=== PATIENT | female | born 1935 | race Caucasian/White ===

== ENCOUNTER → 2019-11-20 13:16 | Outpatient (BNVA) | payer MEDICARE, SELFPAY | PROVIDERS: Family Provider Family Medicine; PCP Family Medicine; Visit Provider Otolaryngology | DX: H61.23 Impacted cerumen, bilateral (principal); H60.501 Unspecified acute noninfective otitis externa, right ear | CPT/HCPCS: 69210; 99214 ==

== ENCOUNTER 2020-03-09 08:59 | Day surgery (SDC) | payer MEDICARE, SELFPAY ==
[2020-03-08 12:03] VITALS: BMI 18.4
[2020-03-09 09:21] VITALS: BP 164/66; PULSE 72; RESP 16; TEMP 36.7; O2SAT 98
[2020-03-09] MEDS: sodium chloride 0.9% 1,000 ML 30 ML IV (09:30)
--- NOTE | 2020-03-09 09:44 | ANES.PREANE2 ---
Pre-Anesthetic Assessment Pre-Anesthetic Assessment: Height/Weight: Height 1.64 m Weight 49.442 kg Temp Pulse Resp BP Pulse Ox 98.0 F 72 16 164/66 98 03/09/20 09:21 03/09/20 09:21 03/09/20 09:21 03/09/20 09:21 03/09/20 09:21 Preop Diagnosis: Abdominal pain nausea bloating Proposed Procedure: Operation Date: 03/09/20 10:30 Proposed Procedures p EGD with poss biopsy [id number] K21.9 Z86.010(Not Applicable) - Davy Melchor MD s Colonoscopy with poss biopsy possible polypectomy(Not Applicable) - Davy Melchor MD Familial anesthetic complications: None Was Beta Darin taken within 24 hours: N/A Last intake: Intake Last Liquid Date 03/08/20 Last Liquid Time 22:00 Last Solid Date 03/07/20 Last Solid Time 22:00 Social: Social History: No alcohol and No tobacco Exam: Pre-Anes Outpt Exam: alert, oriented x 3, clear to auscultation bilaterally and regular rate & rhythm Airway: Cervical ROM: WNL MP: 2 Dentition: Partials Pulmonary: Pulmonary: None reported CV/HEM: CV/HEM: None reported : : None reported Hepatic: Hepatic: None reported GI: GI: None reported Metabolic: Metabolic: None reported Musc/skel: Musc/skel: None reported Neuropsych: Neuropsych: None reported Anesthetic Plan: ASA status: 1 Anesthesia: MAC Risk of > 500 ml blood loss (7ml/kg in children): No Meds/Allergies Current Medications: Current Medications Generic Name Dose Route Start Last Admin Trade Name Freq PRN Reason Stop Dose Admin Sodium Chloride 1,000 mls @ 30 ml s/hr 03/09/20 09:30 03/09/20 09:30 Sodium Chloride 0.9% IV 30 mls/hr .Q24H GABBIE Administration PFSH Anesthesia PFSH: Medical History Acute otitis externa Surgical History H/O colonoscopy 12/21/2009 History of benign breast biopsy History of eye surgery both History of hip replacement left Family History Mother Parkinson disease Stroke Father Stroke Denies family history of Anesthesia complication Bleeding disorder Cancer Social History Smoking and tobacco status: former smoker Alcohol intake: current Alcohol intake frequency: holidays/special occasions only Lives independently: Yes Household members: spouse Marital status: Current occupational status: retired History of recent travel: No Data Anesthesia Cardiac Studies: No Data to Display
[2020-03-09 11:36] VITALS: BP 129/80; PULSE 64; RESP 16; TEMP 36.5; O2SAT 98
[2020-03-09 11:56] VITALS: BP 141/72; PULSE 68; RESP 16; O2SAT 97
--- NOTE | 2020-03-11 19:14 | W.PM.OPSUD ---
Surgery/Procedure H&P Update DATE OF PROCEDURE: March 11, 2020 DATE H&P PERFORMED: 02/20/20 H&P UPDATE INFORMATION: I have reviewed H&P completed within last 30 days, I have examined patient prior to procedure and No changes to prior documentation PREOP DIAGNOSIS: Abdominal pain nausea bloating PLANNED PROCEDURE: Operation Date: 03/09/20 10:30 Proposed Procedures p EGD with poss biopsy [id number] K21.9 Z86.010(Not Applicable) - Davy Melchor MD s Colonoscopy with poss biopsy possible polypectomy(Not Applicable) - Davy Melchor MD
== END 2020-03-09 12:00 | disposition home or self-care (01) ==
PROVIDERS: PCP Family Medicine; Visit Provider Surgery
PROC: 0DJ08ZZ Inspection of Upper Intestinal Tract, Via Natural or Artificial Opening Endoscopic (ICD-10-PCS; CPT 43235; principal; 2020-03-09 10:30)
PROC: 0DJD8ZZ Inspection of Lower Intestinal Tract, Via Natural or Artificial Opening Endoscopic (ICD-10-PCS; CPT 45378; 2020-03-09 10:30)
DX: R10.9 Unspecified abdominal pain (principal); R11.0 Nausea; R14.0 Abdominal distension (gaseous); R19.7 Diarrhea, unspecified; K59.00 Constipation, unspecified; K57.30 Diverticulosis of large intestine without perforation or abscess without bleeding; K44.9 Diaphragmatic hernia without obstruction or gangrene; Z87.891 Personal history of nicotine dependence
CPT/HCPCS: 12345; 43239; 45378; 88305; J2704; J7030

== ENCOUNTER 2020-03-18 13:28 | Outpatient (CLI) | payer MEDICARE, SELFPAY ==
--- NOTE | 2020-03-18 13:34 | MM_ITS ---
WS: [id number] SCREENING DIGITAL MAMMOGRAM WITH CAD HISTORY: SCREENING COMPARISON: None available. Bilateral CC and MLO views submitted. Computer aided detection analyzed. Breast composition: The breasts are extremely dense, which lowers the sensitivity of mammography. The re is an area of distortion near 12:00 of the RIGHT breast. This asymmetry may be due to prior biopsy . Patient indicates prior bilateral breast biopsies. No prior studies for comparison. There are addit ional bilateral rodlike calcifications and dense fibroglandular tissue. RIGHT breast: Spot compression views (CC and MLO). True ML. Ultrasound to follow if abnormality persi sts. MM/[place] [id number] IMPRESSION: BI-RADS: 0-Incomplete: Need additional imaging evaluation FOLLOW UP: Need Additional Imaging
== END 2020-03-18 13:29 | disposition home or self-care (01) ==
LOC: RADSHAW 13:32
PROVIDERS: PCP Family Medicine; Visit Provider Family Medicine
DX: Z12.31 Encounter for screening mammogram for malignant neoplasm of breast (principal); N64.89 Other specified disorders of breast
CPT/HCPCS: 77067

== ENCOUNTER 2020-04-09 09:09 | Outpatient (CLI) | payer MEDICARE, SELFPAY ==
--- NOTE | 2020-04-09 09:18 | US_ITS ---
WS: [id number] ADDITIONAL VIEWS RIGHT BREAST RIGHT breast ultrasound, limited HISTORY: RT BREAST MASS COMPARISON: 03/18/2020 Compression views right CC and MLO projection. True ML also submitted. Breast parenchyma is extremely dense. With the spot compression views the area of distortion in the p osterior breast nearly completely resolves. As per history patient had a biopsy in this location. The re are benign calcifications. RIGHT breast ultrasound, limited. Ultrasound is directed to the superior portion of the breast. This is in the area of the previous bio psy. Along the scar there is an area of low attenuation and soft tissue thickening without increased vascularity. US/US breast RT limited* [id number] IMPRESSION: BI-RADS: 3-Probably Benign FOLLOW-UP: 6 Month Follow-up Recommend 6 month follow-up RIGHT mammogram and ultrasound. There is soft tissu e thickening and distortion in the RIGHT breast closely associated with the sca r formation from prior surgery. There is no increased vascularity. With no prio r studies for comparison interval change is difficult to determine. No history of breast cancer.
== END 2020-04-09 09:10 | disposition home or self-care (01) ==
LOC: RADSHAW 09:15
PROVIDERS: PCP Family Medicine; Visit Provider Family Medicine
DX: N63.10 Unspecified lump in the right breast, unspecified quadrant (principal); R92.1 Mammographic calcification found on diagnostic imaging of breast
CPT/HCPCS: 76642; 77065

== ENCOUNTER → 2020-04-19 08:50 | Outpatient (BNVA) | payer MEDICARE, SELFPAY | PROVIDERS: PCP Family Medicine; Visit Provider Specialist | DX: M79.675 Pain in left toe(s) (principal); M79.674 Pain in right toe(s); R20.0 Anesthesia of skin; R20.2 Paresthesia of skin | CPT/HCPCS: 95909 ==

== ENCOUNTER 2021-02-11 13:16 | Outpatient (CLI) | payer MEDICARE, SELFPAY ==
--- NOTE | 2021-02-11 13:24 | MM_ITS ---
WS: [id number] Right breast diagnostic digital mammogram, 02/11/2021 Clinical Data: RT BREAST MASS Comparison: 04/09/2020, 03/18/2020. Findings: The right breast shows extreme density. There are benign ductal calcifications throughout. No definit e spiculated masses or clustered calcifications are seen. MM/[place] [id number] Impression: 1. Negative right breast mammogram. 2. Right breast ultrasound will be done. BIRADS: 2-Benign FOLLOW UP: See Report The CAD blast furnace checker was used.
--- NOTE | 2021-02-11 13:24 | US_ITS ---
WS: [id number] Right breast ultrasound, 02/11/2021 Clinical Data: RT BREAST MASS Comparison: Right breast ultrasound, 04/09/2020. Findings: Right breast ultrasound in the superior aspect of the breast from 11:00 to 1:00 demonstrated the pres ence of the scar. The breast parenchymal findings showed only normal breast tissue. No cysts or nereyda s were seen. US/US breast RT limited* [id number] Impression: Normal right breast ultrasound. Recommend return to annual screening mammograms BIRADS: 2-Benign FOLLOW UP: 1 Year Follow-up
== END 2021-02-11 13:17 | disposition home or self-care (01) ==
LOC: RADSHAW 13:21
PROVIDERS: PCP Family Medicine; Visit Provider Family Medicine
DX: N63.10 Unspecified lump in the right breast, unspecified quadrant (principal); R92.1 Mammographic calcification found on diagnostic imaging of breast
CPT/HCPCS: 76642; 77065

== ENCOUNTER 2021-03-02 15:57 | Outpatient (CLI) | payer MEDICARE, SELFPAY ==
--- NOTE | 2021-03-02 16:01 | XR_ITS ---
WS: [id number] SCREENING DEXA SCAN [facility]epar CLINICAL INFORMATION: MENOPAUSAL STATE COMPARISON: None. FINDINGS: The L1-L4 bone mineral density measures 1.036 g/cm2. This corresponds to a T score score of -1.2 and Z score of 1.1. Right femoral neck bone mineral density measures 0.698. This corresponds to a T score -2.5 and Z scor e of 0.1. XR/XR DEXA axial skeleton* [id number] IMPRESSION: Osteopenia lumbar spine. Osteoporosis in the right femoral neck at the lower en d of the range. Patient's FRAX calculated 10 year probability for major osteoporotic fracture i s 34.6 % and osteoporotic hip fracture is 25.6%.
== END 2021-03-02 15:58 | disposition home or self-care (01) ==
PROVIDERS: PCP Family Medicine; Visit Provider Family Medicine
DX: Z78.0 Asymptomatic menopausal state (principal); M85.88 Other specified disorders of bone density and structure, other site; M81.0 Age-related osteoporosis without current pathological fracture
CPT/HCPCS: 77080

== ENCOUNTER → 2021-12-28 09:52 | Outpatient (BNVA) | payer MEDICARE, SELFPAY | PROVIDERS: PCP Family Medicine; Visit Provider Otolaryngology | DX: H90.0 Conductive hearing loss, bilateral (principal); H61.23 Impacted cerumen, bilateral; Z87.891 Personal history of nicotine dependence | CPT/HCPCS: 69210; 99203 ==

== ENCOUNTER 2022-08-22 09:29 | Outpatient (CLI) | payer SELFPAY ==
[2022-08-22 10:04] LABS: HF Add Manual Diff No
[2022-08-22 10:09] LABS: Basophils # 0.1 10^3/uL (0.0-0.1); Eosinophils # 0.1 10^3/uL (0.0-0.8); Eosinophils % 1.8 %; Hematocrit 40.6 % (37.0-47.0); Hemoglobin 13.1 g/dL (11.5-15.3); Lymphocytes # 2.4 10^3/uL (0.8-4.8); Lymphocytes % 39.9 %; Mean Corpuscular HGB Conc 32.3 g/dL (30.0-36.0); Mean Platelet Volume 9.9 fL (7.4-10.4); Monocytes # 0.8 10^3/uL (0.2-0.9); Monocytes % 12.5 %; Neutrophils # 2.67 10^3/uL (1.8-7.7); Neutrophils % 44.5 %; Nucleated Red Blood Cells % 0 %; Platelet Count 318 10^3/cmm (130-400); Red Blood Count 4.51 10^6/uL (4.1-5.3); Red Cell Distribution Width 13.2 % (12.1-15.1)
[2022-08-22 10:23] LABS: Estmated Average Glucose 123; Hemoglobin A1C 5.9 % (4.0-6.0)
[2022-08-22 10:40] LABS: Alanine Aminotransferase 10 U/L (0-33); Albumin Level 4.4 g/dL (3.5-5.2); Alkaline Phosphatase 37 U/L (35-105); Anion Gap 12.8 (5-19); Aspartate Amino Transferase 14 U/L (0-32); Blood Urea Nitrogen 10 mg/dL (8-23); Carbon Dioxide 29 mmol/L (22-29); Chloride 105 mmol/L (98-107); Chol HDL Ratio 3.16 mg/dL (0.0-4.40); Cholesterol 256 mg/dL (0-200); Globulin 3.1 g/dL (1.3-4.6); Glucose 98 mg/dL (65-115); HDL Cholesterol 81 mg/dL (60-100); LDL Cholesterol Calculated 162 mg/dL (50-129); Osmolality Calculated 293 mOsm/kg (285-295); Potassium 4.8 mmol/L (3.5-5.1); Sodium 142 mmol/L (136-145); Total Bilirubin 0.4 mg/dL (0.15-1.2); Total Protein 7.5 g/dL (6.6-8.7); Triglycerides 67 mg/dL (0-150)
== END 2022-08-22 09:30 | disposition home or self-care (01) ==
LOC: LAB 09:31
PROVIDERS: PCP Family Medicine; Visit Provider Dermatology
DX: Z01.89 Encounter for other specified special examinations (principal)

== ENCOUNTER → 2022-12-08 08:56 | Outpatient (BNVA) | payer MEDICARE, SELFPAY | PROVIDERS: PCP Family Medicine; Visit Provider Family Medicine | DX: G56.00 Carpal tunnel syndrome, unspecified upper limb (principal); M19.90 Unspecified osteoarthritis, unspecified site; G47.00 Insomnia, unspecified | CPT/HCPCS: 85651; 86140; 86160; 86162; 86235; 86255; 86376; 86431 ==

== ENCOUNTER 2023-05-22 11:18 | Outpatient (CLI) | payer SELFPAY ==
[2023-05-22 12:14] LABS: HF Add Manual Diff No
[2023-05-22 12:46] LABS: Basophils # 0.1 10^3/uL (0.0-0.1); Eosinophils # 0.1 10^3/uL (0.0-0.8); Eosinophils % 1.3 %; Hematocrit 37.7 % (36-47); Lymphocytes # 2.2 10^3/uL (0.8-4.8); Lymphocytes % 27.7 %; Mean Corpuscular HGB Conc 32.1 g/dL (30-55); Mean Corpuscular Hemoglobin 27.8 pg (27-33); Mean Corpuscular Volume 86.5 fl (85-98); Monocytes % 12.6 %; Neutrophils # 4.56 10^3/uL (1.8-7.7); Nucleated Red Blood Cells % 0 %; Platelet Count 360 10^3/cmm (157-399); Red Blood Count 4.36 10^6/uL (3.85-5.65); White Blood Count 7.99 10^3/uL (3.29-11.43)
[2023-05-22 12:49] LABS: Estmated Average Glucose 114; Hemoglobin A1C 5.6 % (4.0-6.0)
[2023-05-22 12:54] LABS: Alanine Aminotransferase 10 U/L (0-33); Albumin Level 4.3 g/dL (3.5-5.2); Alkaline Phosphatase 47 U/L (35-105); Anion Gap 14.5 (5-19); Aspartate Amino Transferase 13 U/L (0-32); Blood Urea Nitrogen 15 mg/dL (8-23); Calcium 9.2 mg/dL (8.5-10.5); Carbon Dioxide 27 mmol/L (22-29); Chloride 100 mmol/L (98-107); Chol HDL Ratio 2.99 mg/dL (0.0-4.40); Cholesterol 203 mg/dL (0-200); Globulin 2.9 g/dL (1.3-4.6); Glucose 88 mg/dL (65-115); HDL Cholesterol 68 mg/dL (60-100); LDL Cholesterol Calculated 120 mg/dL (50-129); LDL HDL Ratio 1.76 RATIO (0.00-3.22); Osmolality Calculated 284 mOsm/kg (285-295); Potassium 4.5 mmol/L (3.5-5.1); Sodium 137 mmol/L (136-145); Total Bilirubin 0.4 mg/dL (0.15-1.2); Total Protein 7.2 g/dL (6.6-8.7); Triglycerides 73 mg/dL (0-150)
== END 2023-05-22 11:19 | disposition home or self-care (01) ==
PROVIDERS: PCP Family Medicine; Visit Provider Dermatology
DX: Z01.89 Encounter for other specified special examinations (principal)
CPT/HCPCS: 36415

== ENCOUNTER 2023-06-15 09:59 | Emergency (ER) | payer MEDICARE, SELFPAY ==
[2023-06-15 10:12] VITALS: BP 204/74; PULSE 85; RESP 17; TEMP 36.7; O2SAT 99; BMI 20.5
--- NOTE | 2023-06-15 10:19 | ECG_ITS ---
[facility] Test Date: 2023-06-15 Pat Name: Brea Ortiz Department: Room: Gender: Female Marketing Operations Consultant: : 1935 Requested By: Harsha Gregory Order Number: [id number] Ana MD: Hanna Naik M.D. Measurements Intervals [place] Rate: 76 P: 72 NC: 122 QRS: 44 QRSD: 104 T: 52 QT: 384 QTc: 433 Interpretive Statements SINUS RHYTHM No previous ECG available for comparison Electronically Signed On 06-15-2023 13:31:33 CDT by Hanna Naik M.D. [email or web address]
--- NOTE | 2023-06-15 10:19 | CT_ITS ---
WS: [id number] CT HEAD TECHNIQUE: Noncontrast CT of the head obtained from the skullbase to the vertex. CLINICAL INFORMATION: Acute CVA COMPARISON: None. DLP: 1041.[address] scans at [facility] use at least one of these dose optimization techniques: automated e xposure control; mA and/or kV adjustment per patient size (includes targeted exams where dose is matc hed to clinical indication); or iterative reconstruction. FINDINGS: Wedge-shaped area of decreased attenuation in the LEFT parietal lobe at the frontoparietal junction m ost compatible with subacute ischemia measuring approximately 4.9 x 1.8 cm. Minimal localized surroun ding edema. No significant mass effect or midline shift. No hydrocephalus. Mild small vessel changes. Mild parenchymal volume loss. Intracranial vascular calcifications. Parana lito sinuses and mastoid air cells are well aerated. IMPRESSION: 1. No evidence of intracranial hemorrhage 2. Wedge-shaped area of low-attenuation in the LEFT parietal lobe at the frontoparietal junction mos t compatible with subacute ischemia. This can be followed up with MRI. 3. No other acute findings. Notified Harsha Del Castillo DO at 06/15/2023 11:17 AM.
--- NOTE | 2023-06-15 10:27 | W.ED.WEAKNES ---
HPI - Weakness General: Chief complaint: Weakness Stated complaint: stroke symptoms last night Time Seen by Provider: 06/15/23 10:12 Source: patient Mode of arrival: ambulatory History of Present Illness: 88-year-old female presents to the emergency room with her . Feeling for the last week she has had dizziness generalized weakness she has not felt right at times she has been stuttering. She has some weakness on her left side as well. She has not had any visual difficulties. Time she is seen she is awake and alert. MD Complaint: generalized weakness Onset (ago): minute(s) Duration: constant Location: RLE Migration: none Severity: mild Relieving factors: none Exacerbating factors: none Associated symptoms: Denies chest pain, chills, confusion, melena, decreased appetite, diaphoresis, dysuria, easy bruising, fever(s), headache(s), myalgias, nausea, rash, short of breath, syncope or vomiting Review of Systems Const: Denies: fever(s), chills or diaphoresis ENMT: Denies: throat pain, ear or mastoid pain, nasal discharge or nasal congestion Card: Denies: chest pain or syncope Resp: Denies: dyspnea, productive cough or non-productive cough GI: Denies: nausea, vomiting or melena : Denies: dysuria Skin/Breast: Denies: rash or pruritus Neuro: Denies: headache(s) or confusion [place]/Lymph: Denies: easy bruising PFS ED PFSH: Medical History Acute otitis externa Surgical History H/O colonoscopy (03/09/20) diverticulosis H/O esophagogastroduodenoscopy (03/09/20) normal History of benign breast biopsy History of eye surgery both History of hip replacement left History of parathyroid surgery Family History Mother Parkinson disease Stroke Father Stroke Denies family history of Anesthesia complication Bleeding disorder Cancer Social History Smoking and tobacco status: former smoker (last cig in 2004) Alcohol intake: current Alcohol intake frequency: holidays/special occasions only Substance/Drug Use: never Lives independently: Yes Household members: spouse Marital status: Current occupational status: retired Physical Exam Const: GENERAL APPEARANCE: cooperative and comfortable ORIENTATION/CONSCIOUSNESS: Yes awake, Yes oriented to person, Yes oriented to place and Yes oriented to time HENMT: COMMON NORMALS: normocephalic, atraumatic and hearing grossly normal bilaterally HEAD & SCALP: normocephalic and atraumatic Resp: COMMON NORMALS: normal respiratory effort, No retractions, No use of accessory muscles and clear to auscultation bilaterally AUSCULTATION: clear to auscultation bilaterally Cardio: COMMON NORMALS: regular rate, regular rhythm and No murmurs present (Cardio) RATE: regular rate RHYTHM: regular rhythm GI: COMMON NORMALS: Soft to palpation and No hepatosplenomegaly present AUSCULTATION: Yes normoactive bowel sounds PALPATION: Yes Soft to palpation, No Tenderness to palpation present (GI), No Guarding due to palpation present (GI) and Yes No hepatosplenomegaly present Extremity: COMMON NORMALS: normal to inspection, capillary refill normal, no clubbing, cyanosis or edema, no calf tenderness and no pedal edema Neuro: SENSORIUM/ORIENTATION: Yes oriented to person, Yes oriented to place and Yes oriented to time Skin: COMMON NORMALS: no rashes or lesions noted GENERAL SKIN EXAM: no rashes or lesions noted Course Vital Signs: Vital signs: Vital Signs Temperature 98.0 F 06/15/23 10:12 Pulse Rate 69 06/15/23 12:20 Respiratory Rate 17 06/15/23 10:12 Blood Pressure 188/79 06/15/23 12:20 Pulse Oximetry 100 06/15/23 12:20 Oxygen Delivery Me thod Room Air 06/15/23 12:20 MDM - Weakness Medical Decision Making Symptoms earlier today while in the left side that resolved now. she has signs of subacute stroke on the left side. I think he rarely 2 different issues her symptoms been going on for some time now. All of her acute symptoms have resolved she is able to ambulate without difficulty and her stroke score she has no significant findings. She is beyond any potential timeframe for any kind of intervention at this point. We will discharge her home start her on atorvastatin aspirin and Plavix. Set up for outpatient testing including a event monitor echocardiogram carotid duplex and MRI of the head follow-up with neurology return if is further problems. Nurse ambulated patient after work-up is completed and she had no difficulties with ambulation was not unsteady. Medical Records I reviewed the patient's medical records. Lab Data I reviewed the patient's lab results. 06/15/23 10:50 06/15/23 10:50 Laboratory Results WBC 7.23 10^3/uL (3.29-11.43) 06/15/23 10:50 RBC 4.61 10^6/uL (3.85-5.65) 06/15/23 10:50 Hgb 12.70 g/dL (11.27-16.99) 06/15/23 10:50 Hct 38.7 % (36-47) 06/15/23 10:50 MCV 83.9 fl (85-98) L 06/15/23 10:50 MCH 27.5 pg (27-33) 06/15/23 10:50 MCHC 32.8 g/dL (30-55) 06/15/23 10:50 RDW 14.6 % (12.1-15.1) 06/15/23 10:50 Plt Count 324 10^3/cmm (157-399) 06/15/23 10:50 MPV 9.9 fL (7.4-10.4) 06/15/23 10:50 Neut % (Auto) 60.0 % 06/15/23 10:50 Lymph % (Auto) 27.5 % 06/15/23 10:50 [place] % (Auto) 10.4 % 06/15/23 10:50 Eos % (Auto) 1.1 % 06/15/23 10:50 Baso % (Auto) 0.7 % 06/15/23 10:50 Neut # (Auto) 4.34 10^3/uL (1.8-7.7) 06/15/23 10:50 Lymph # (Auto) 2.0 10^3/uL (0.8-4.8) 06/15/23 10:50 [place] # (Auto) 0.8 10^3/uL (0.2-0.9) 06/15/23 10:50 Eos # (Auto) 0.1 10^3/uL (0.0-0.8) 06/15/23 10:50 Baso # (Auto) 0.1 10^3/uL (0.0-0.1) 06/15/23 10:50 Nucleated RBC % (auto) 0 % 06/15/23 10:50 Nucleated RBCs # 0.0 /100WBC 06/15/23 10:50 Sodium 135 mmol/L (136-145) L 06/15/23 10:50 Potassium 3.9 mmol/L (3.5-5.1) 06/15/23 10:50 Chloride 98 mmol/L (98-107) 06/15/23 10:50 Carbon Dioxide 25 mmol/L (22-29) 06/15/23 10:50 Anion Gap 15.9 (5-19) 06/15/23 10:50 BUN 14 mg/dL (8-23) 06/15/23 10:50 Creatinine 0.7 mg/dL (0.5-0.9) 06/15/23 10:50 GFR Calculation Not Reportable 06/15/23 10:50 Glucose 93 mg/dL (65-115) 06/15/23 10:50 Calculated Osmolality 280 mOsm/kg (285-295) L 06/15/23 10:50 Calcium 9.2 mg/dL (8.5-10.5) 06/15/23 10:50 Total Bilirubin 0.4 mg/dL (0.15-1.2) 06/15/23 10:50 AST 13 U/L (0-32) 06/15/23 10:50 ALT 9 U/L (0-33) 06/15/23 10:50 Alkaline Phosphatase 43 U/L (35-105) 06/15/23 10:50 Total Protein 7.3 g/dL (6.6-8.7) 06/15/23 10:50 Albumin 4.3 g/dL (3.5-5.2) 06/15/23 10:50 Globulin 3.0 g/dL (1.3-4.6) 06/15/23 10:50 Urine Color Yellow (Yellow) 06/15/23 11:28 Urine Appearance Clear (CLEAR) 06/15/23 11:28 Urine pH 8 (5-7) H 06/15/23 11:28 Ur Specific [place] 1.010 (1.005-1.030) 06/15/23 11:28 Urine Protein Neg (Negative) 06/15/23 11:28 Urine Glucose (UA) Norm (Normal) 06/15/23 11:28 Urine Ketones 1+ (Negative) H 06/15/23 11:28 Urine Blood Neg (Negative) 06/15/23 11:28 Urine Nitrate Negative (Negative) 06/15/23 11:28 Urine Bilirubin Neg (Negative) 06/15/23 11:28 Prot Sulfosalicylic Acd Negative (Negative) 06/15/23 11:28 Urine Urobilinogen Norm mg/dL (Negative) 06/15/23 11:28 Ur Leukocyte Esterase Negative (Negative) 06/15/23 11:28 All radiology interpretation(s) finalized by discharge Discharge Plan Discharge Patient Disposition: Home Clinical Impression: CVA (cerebrovascular accident) Condition: Stable Prescriptions: New atorvastatin 40 mg tablet 40 mg PO DAILY Qty: 30 0RF aspirin 81 mg tablet,delayed release (DR/EC) 81 mg PO DAILY Qty: 30 0RF clopidogrel 75 mg tablet 75 mg PO DAILY Qty: 30 0RF No Action biotin 1 mg capsule 1 mg PO DAILY Vitamin D3 50 mcg (2,000 unit) Tablet 50 mcg PO DAILY vitamin K2 40 mcg Tablet 40 mcg PO DAILY Discharge Orders: Discharge ED (Routine); Ordered 06/15/23 Ordered By: Harsha Del Castillo Referrals: Lance Camacho MD [Primary Care Provider] - Discharge Diet: Usual diet Discharge Activity: Increase activity as tolerated Patient Instructions: Opioid Safety, Pain Management Activity Restrictions/Additional Instructions: Case management will set up outpatient work-up to include a 48-hour Holter monitor, echocardiogram, carotid duplex and MRI of the head and follow-up with the neurology department. Start the atorvastatin aspirin and clopidogrel today. Coding Level of Care Code ED Assistant Chief Of Police for Alfonso Mcallister NIH stroke score NIHSS Level Of Consciousness - 1a: 0 Level Of Consciousness Questions - 1b: Both Correct Level Of Consciousness Commands - 1c: Both Correct Best Gaze - 2: Normal Visual [place]ost - 3: No Visual Loss Facial Palsy - 4: Normal Motor Arm Right - 5: No Drift Motor Arm Left - 5: No Drift Motor Leg Right - 6: No Drift Motor Leg Left - 6: No Drift Limb Ataxia - 7: Present In One Limb (Left leg) Sensory - 8: Normal Best Language - 9: No Aphasia Dysarthia - 10: Normal Extinction And Inattention - 11: 0 Score Total Score: 1
[2023-06-15 10:50] VITALS: BP 189/79; PULSE 73; O2SAT 99
[2023-06-15 11:07] LABS: Basophils # 0.1 10^3/uL (0.0-0.1); Basophils % 0.7 %; Eosinophils # 0.1 10^3/uL (0.0-0.8); Eosinophils % 1.1 %; Hematocrit 38.7 % (36-47); Lymphocytes % 27.5 %; Mean Corpuscular HGB Conc 32.8 g/dL (30-55); Mean Corpuscular Hemoglobin 27.5 pg (27-33); Mean Corpuscular Volume 83.9 fl (85-98); Mean Platelet Volume 9.9 fL (7.4-10.4); Monocytes # 0.8 10^3/uL (0.2-0.9); Monocytes % 10.4 %; Neutrophils # 4.34 10^3/uL (1.8-7.7); Nucleated Red Blood Cells % 0 %; Platelet Count 324 10^3/cmm (157-399); Red Blood Count 4.61 10^6/uL (3.85-5.65); Red Cell Distribution Width 14.6 % (12.1-15.1); White Blood Count 7.23 10^3/uL (3.29-11.43)
[2023-06-15 11:24] LABS: Alanine Aminotransferase 9 U/L (0-33); Albumin Level 4.3 g/dL (3.5-5.2); Alkaline Phosphatase 43 U/L (35-105); Anion Gap 15.9 (5-19); Aspartate Amino Transferase 13 U/L (0-32); Blood Urea Nitrogen 14 mg/dL (8-23); Calcium 9.2 mg/dL (8.5-10.5); Carbon Dioxide 25 mmol/L (22-29); Chloride 98 mmol/L (98-107); Glucose 93 mg/dL (65-115); Osmolality Calculated 280 mOsm/kg (285-295); Potassium 3.9 mmol/L (3.5-5.1); Sodium 135 mmol/L (136-145); Total Bilirubin 0.4 mg/dL (0.15-1.2); Total Protein 7.3 g/dL (6.6-8.7)
[2023-06-15] MEDS: amlodipine 10 mg Tablet PO (11:45)
[2023-06-15] MEDS: labetalol 5 mg/mL SDV 20mL 10 MG IVP (11:45)
[2023-06-15 11:52] LABS: Add Urine Microscopic? NO; Charge for UA Resulting for Rev
[2023-06-15 11:59] LABS: Urine Appearance Clear (CLEAR); Urine Color Yellow (Yellow); pH Urine 8 (5-7)
[2023-06-15 12:00] LABS: Bilirubin Urine Neg (Negative); Blood Urine Neg (Negative); Glucose Urine UA Norm (Normal); Ketones Urine 1+ (Negative); Leukocyte Esterase Urine Negative (Negative); Nitrate Urine Negative (Negative); Protein Urine Neg (Negative); Sulfosalicylic Acid Urine Negative (Negative); Urobilinogen Urine Norm (Negative)
[2023-06-15 12:20] VITALS: BP 188/79; PULSE 69; O2SAT 100
--- NOTE | 2023-06-15 15:33 | PC.SOCIAL ---
Neuro F/u Referral faxed to neurology at this time. Orders for o/p testing sent to centralized scheduling at this time.
== END 2023-06-15 13:28 | disposition home or self-care (01) ==
PROVIDERS: Emergency Provider Family Medicine; PCP Family Medicine
DX: I63.9 Cerebral infarction, unspecified (principal); Z87.891 Personal history of nicotine dependence
CPT/HCPCS: 70450; 80053; 81003; 85025; 93005; 96374; 99285; J3490

== ENCOUNTER 2023-06-22 13:56 | Outpatient (CLI) | payer MEDICARE, SELFPAY ==
--- NOTE | 2023-06-22 14:04 | USCV_ITS ---
Brea Ortiz Age: 88 Gender: F : 1935 Exam Date: 06/22/2023 14:26 Ordering Phys: Harsha Del Castillo DO Technologist: Kodi Villanueva [place] [facility] [place]: CVA Risk Factors: Previous Vascular Surgery: Right Brachial BP: / Left Brachial BP: / Right Left Velocity (cm/s) Spectral Plaque Velocity (cm/s) Spectral Plaque Syst/Diast Broadening Syst/Diast Broadening 68.20/ 13.80 Prox CCA 55.40 / 12.60 66.20/ 12.10 Mid CCA 66.00 / 13.20 67.50/ 20.50 Distal CCA 65.30 / 13.20 55.90/ 20.40 Prox ICA 66.00 / 25.60 105.10/28.50 Mid ICA 52.80 / 18.60 117.90/29.50 Distal ICA 88.60 / 31.10 65.70 ECA 78.50 1.59 ICA/CCA 0.80 Antegrade Vertebral Antegrade 53.90/ 11.80 cm/s 59.00/ 16.30 cm/s Tri Subclavian Bi 83.10 80.30 FINDINGS Comparison: none available. No significant elevation of systolic or diastolic velocities. Waveforms are normal. Mild scattered plaque. Antegrade vertebral arteries. CONCLUSIONS Bilateral ICA stenosis less than 50%. Dr. Yaquelin Mercado DO (Electronically Signed) Final Date: 22 June 2023 16:20 S
--- NOTE | 2023-06-22 14:04 | USCV_ITS ---
Brea Ortiz Age: 88 Gender: F : 1935 Exam Date: 06/22/2023 14:50 Ordering Phys: Harsha Del Castillo DO Technologist: Xiang Hampton Exam Location: [facility] [place] Indication: sob BP: 142 / 72 HR: 77 Rhythm: Sinus Technical Quality: Adequate MEASUREMENTS (Male / Female) Normal Values 2D ECHO LV Chamber Size 4.2 cm RV Chamber Size 2.7 cm LVOT Diameter 2.1 cm LV Ejection Fraction MOD 2C 49.5 % LV Ejection Fraction 2C AL 50.5 % LA Diameter 3.6 cm LA Width 3.9 cm LA Height 4.3 cm RA Width 4.1 cm RA Height 4.1 cm Aorta at Sinotubular Diameter 2.5 cm IVC Diameter 1.6 cm M-MODE Aortic Annulus Diameter 2.9 cm LA Ao Ratio MM 1.4 MV E Point Septal Separation 0.8 cm DOPPLER AV Peak Velocity 197.0 cm/s LVOT Peak Velocity 94.0 cm/s AV Area Cont Eq vti 1.6 cm squared AV Area Cont Eq pk 1.7 cm squared MV Area PHT 5.9 cm squared Mitral E to A Ratio 0.8 MV E' Velocity 39.0 cm/s Mitral E to MV E' Ratio 7.5 Mitral E to LV E' Lateral Ratio 8.7 Mitral E to LV E' Septal Ratio 6.6 TR Peak Velocity 164.0 cm/s TR Peak Gradient 10.8 mmHg TV Peak E Velocity 76.0 cm/s Right Atrial Pressure 3.0 mmHg Pulmonary Artery Systolic Pressu 13.8 mmHg PV Peak Velocity 110.0 cm/s FINDINGS Left Ventricle Normal left ventricular size and systolic function, EF 58 %. No regional wall motion abnormalities. Grade I/IV diastolic dysfunction (abnormal relaxation filling pattern), normal to mildly elevated filling pressures. Right Ventricle The right ventricle is normal in size and function. Right Atrium The right atrium is normal in size. Left Atrium Mildly increased left atrial size. Mitral Valve Thickened mitral valve. Trace mitral valve regurgitation. Aortic Valve Thickened aortic valve. Mild aortic valve regurgitation. Tricuspid Valve Trace to mild tricuspid valve regurgitation. Pulmonic Valve Pulmonic valve not well visualized. Pericardium Normal pericardium without effusion. Aorta Normal ascending aorta dimension. IVC Normal inferior vena cava. CONCLUSIONS Normal left ventricular size and systolic function, EF 58 %. No regional wall motion abnormalities. Grade I/IV diastolic dysfunction (abnormal relaxation filling pattern), normal to mildly elevated filling pressures. Mildly increased left atrial size. Thickened mitral valve. Trace mitral valve regurgitation. Thickened aortic valve. Mild aortic valve regurgitation. Trace to mild tricuspid valve regurgitation. Estimated pulmonary artery peak systolic pressure was 14 mmHg. There is no pericardial effusion. There are no intracardiac masses. No similar previous studies are available for comparison Dr Darling Lemos MD [facility] (Electronically Signed) Final Date: 22 June 2023 20:02 S
== END 2023-06-22 13:57 | disposition home or self-care (01) ==
LOC: RAD 13:58
PROVIDERS: PCP Family Medicine; Visit Provider Family Medicine
DX: I63.9 Cerebral infarction, unspecified (principal); I65.23 Occlusion and stenosis of bilateral carotid arteries; R06.02 Shortness of breath; I08.0 Rheumatic disorders of both mitral and aortic valves
CPT/HCPCS: 93306; 93880

== ENCOUNTER → 2023-06-26 11:25 | Outpatient (BNVA) | payer MEDICARE, SELFPAY | PROVIDERS: PCP Family Medicine; Visit Provider Internal Medicine Rheumatology | DX: Z79.899 Other long term (current) drug therapy (principal); M19.041 Primary osteoarthritis, right hand; M45.6 Ankylosing spondylitis lumbar region; Z11.59 Encounter for screening for other viral diseases; Z11.1 Encounter for screening for respiratory tuberculosis | CPT/HCPCS: 36415; 72040; 73070; 73130; 73630; 82306; 83520; 85651; 86140; 86200; 86480; 86704; 86803; 86812; 87340; 99204 ==

== ENCOUNTER → 2023-07-11 14:58 | Outpatient (BNVA) | payer MEDICARE, SELFPAY | PROVIDERS: PCP Family Medicine; Visit Provider Specialist | DX: I63.512 Cerebral infarction due to unspecified occlusion or stenosis of left middle cerebral artery (principal); G47.10 Hypersomnia, unspecified | CPT/HCPCS: 99205 ==

== ENCOUNTER 2023-07-12 13:44 | Outpatient (CLI) | payer MEDICARE, SELFPAY ==
--- NOTE | 2023-07-12 13:48 | MR_ITS ---
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 COMPARISON: CT head 06/15/2023 TECHNIQUE: Diffusion imaging, multiplanar T1, T2 and FLAIR imaging obtained. Subacute ischemic infarct in the posterior LEFT frontoparietal lobe. Diffusion imaging is returning t o normal. ADC is of increased signal. Mild cortical laminar necrosis at the site of the infarct. This corresponds to the subacute infarct described on the CT of 06/15/2023. No acute diffusion abnormaliti es otherwise. There is hemosiderin and hemorrhagic component associated with the infarct. Along the p osterior medial LEFT frontal lobe is an area of hemosiderin measuring 1.5 x 1.9 cm. There is addition al hemorrhagic component within the evolving adjacent subacute infarct. Small lacunar infarct LEFT basal ganglia. Mild volume loss and atrophy of the brain. Mild small vesse l ischemic disease. Ventricles and extra-axial spaces are normal. No inferior displacement of the cerebellar tonsils. Dural venous sinuses and di[place]ede of [place] demonstrate no abnormality on this unenhanced studies. Paranasal sinuses: Clear. Mastoid air cells: Normal. Calvarium and scalp: Intact. IMPRESSION: 1. Subacute, evolving LEFT frontoparietal lobe infarct with hemorrhagic component. Hemorrhagic compo nent was not evident on the recent CT. There is a focal area of dense hemosiderin in the parafalcine location of the posterior LEFT frontal lobe measuring 1.5 x 1.9 cm. Additional small areas of hemorrh age within the evolving infarct. Consider evaluation by postcontrast imaging of the brain to evaluate for an underlying mass or vascular malformation. 2. Mild atrophy and mild small vessel ischemic disease otherwise. Prior LEFT basal ganglia lacunar i nfarct.
== END 2023-07-12 13:45 | disposition home or self-care (01) ==
LOC: RAD 13:44
PROVIDERS: PCP Family Medicine; Visit Provider Family Medicine
DX: I61.1 Nontraumatic intracerebral hemorrhage in hemisphere, cortical (principal); R41.3 Other amnesia
CPT/HCPCS: 70551

== ENCOUNTER → 2023-08-22 12:47 | Outpatient (BNVA) | payer MEDICARE, SELFPAY | PROVIDERS: PCP Family Medicine; Visit Provider Internal Medicine Rheumatology | DX: Z79.899 Other long term (current) drug therapy (principal); M77.11 Lateral epicondylitis, right elbow; M77.12 Lateral epicondylitis, left elbow; M06.041 Rheumatoid arthritis without rheumatoid factor, right hand; M06.042 Rheumatoid arthritis without rheumatoid factor, left hand | CPT/HCPCS: 36415; 80076; 82310; 82565; 84132; 85025; 86140; 99214 ==

== ENCOUNTER → 2023-08-30 10:28 | Outpatient (BNVA) | payer MEDICARE, SELFPAY | PROVIDERS: PCP Family Medicine; Visit Provider Specialist | DX: G31.84 Mild cognitive impairment of uncertain or unknown etiology (principal); G47.10 Hypersomnia, unspecified | CPT/HCPCS: 96116; 99215 ==

== ENCOUNTER 2023-09-19 18:25 | Inpatient (IN) | payer MEDICARE, SELFPAY ==
[2023-09-19] VITALS (10 sets, daily range): BP systolic 95–179; BP diastolic 48–85; PULSE 64–90; RESP 16–17; TEMP 36.8–36.9; O2SAT 95–100; BMI 19.0
--- NOTE | 2023-09-19 19:27 | CTR_ITS ---
PROCEDURE INFORMATION: Exam: CT Head Without And With Contrast Exam date and time: 09/19/2023 7:46 PM Age: 88 years old Clinical indication: Other: Seizure TECHNIQUE: Imaging protocol: Computed tomography of the head without and with contrast. Radiation optimization: All CT scans at this facility use at least one of these dose optimization techniques: automated exposure control; mA and/or kV adjustment per patient size (includes targeted exams where dose is matched to clinical indication); or iterative reconstruction. Contrast material: OMNI 350; Contrast volume: 100 ml; Contrast route: INTRAVENOUS (IV); COMPARISON: MR head wo con* [id number] 07/12/2023 2:21 PM RADIATION DOSE METRICS: Total DLP (mGy-cm): 2583 FINDINGS: Brain: Encephalomalacia in the left parietal lobe redemonstrated. No acute intracranial abnormality. Cerebral ventricles: No ventriculomegaly. Paranasal sinuses: Visualized sinuses are unremarkable. No fluid levels. Mastoid air cells: Visualized mastoid air cells are well aerated. Bones/joints: Unremarkable. No acute fracture. Soft tissues: Unremarkable. CT/CT head wo/w con [id number] IMPRESSION: 1. No acute intracranial abnormality. 2. Encephalomalacia in the left parietal lobe redemonstrated.
--- NOTE | 2023-09-19 19:31 | ECG_ITS ---
[facility] Test Date: 2023-09-19 Pat Name: Brea Ortiz Department: Room: Gender: Female Director Financial Systems: : 1935 Requested By: Adrian Choudhury Order Number: [id number] Ana MD: Neeraj Sanchez M.D. Measurements Intervals [place] Rate: 77 P: 65 WY: 163 QRS: 36 QRSD: 90 T: 59 QT: 400 QTc: 455 Interpretive Statements SINUS RHYTHM SEPTAL MYOCARDIAL INFARCTION , OF INDETERMINATE AGE [40+ ms Q WAVE IN V1/V2] Compared to ECG 06/15/2023 11:09:48 Myocardial infarct finding now present Electronically Signed On 09-19-2023 21:10:47 ALGEBRA TEACHER by Neeraj Sanchez M.D. [id number]
--- NOTE | 2023-09-19 19:33 | ED_ITS ---
HPI - Seizure 2 General: Chief Complaint: Seizure Stated Complaint: Seizures Time Seen by Provider: 09/19/23 18:27 History of Present Illness: HPI Narrative: Patient here tonight with her who is the primary historian. The patient had what the believes is a seizure at around 6:00 tonight. They had finished dinner and he was watching TV. He looked back and she was staring off into the distance and seem to have some tonic-clonic movements of her upper extremities. After it was over (about 1 minute) she seems exhausted, fatigued, had trouble speaking, lethargic. She was brought into the emergency department. During my initial assessment, she started staring again and had some nonpurposeful low amplitude tonic-clonic movements of her upper extremities and then vomited. This lasted about 2 minutes. She seems postictal at this point. She was able to look at me and talk to me but cannot follow my commands very well. I asked her to raise her right arm up in the air and she did so. I asked her to give me a thumbs up with her left thumb and she simply just held up her hand and looked at it as if she was confused. There is a significant recent past medical history which is documented below. I have read through this and also conferred with the . Patient will need to go to CT scan for a CT head with and without contrast. Recent history from Dr Mejía: Stroke/TIA 08/30/23- Patient is a 88 year old femal e here as follow up for stroke. Last seen 07/11/23. Stroke occurred 06/15/23. States that she has been sorta good. Complains of being sleepy and fatigued. Does state that she has not been sleeping well. states that she has been having high blood pressure despite taking her lisinopril, also confirms that patient has not been sleeping well. He also mentions that her speech has changed just since last night. Says that she has misplacement of words and has reduced her speech pattern. Says that patient seems to grasp for words. Her blood pressure is high today compared to what she normally is. states that she has been taking her prednisone more often lately, but did not take any yesterday or today. SSRN I brought her back to evaluate her cognitive function because her says she is often agitated. He believes that over the course of the last month since I saw her if anything she is getting a little worse. Her memory seems to be failing gradually. She does not sleep well at night and he lets her take naps during the day. He watches over her all the time. Her MRI shows a dense concentration of hemosiderin as described by Dr. Mercado which could be from a hemorrhagic infarct. Her lesion is swollen in appearance and could well be a tumor. MRI brain 07/12/2023 1. Subacute, evolving LEFT frontopariet al lobe infarct with hemorrhagic component. Hemorrhagic component was not evident on the recent CT. There is a focal area of dense hemosiderin in the parafalcine location of the posterior LEFT frontal lobe measuring 1.5 x 1.9 cm. Additional small areas of hemorrhage within the evolving infarct. Consider evaluation by postcontrast imaging of the brain to evaluate for an underlying mass or vascular malformation. 2. Mild atrophy and mild small vessel i schemic disease otherwise. Prior LEFT basal ganglia lacunar infarct. Dictated By: Yaquelin Mercado DO CBC was normal. Complete metabolic panel was unremarkable. Carotid Doppler ultrasound showed less than 50% stenosis bilaterally. Echocardiogram showed ejection fraction of 58%, diastolic dysfunction and nothing significant. She is taking clopidogrel 75 mg daily, aspirin 81 mg and 40 mg of atorvastatin. Derick was working out in the yard and she felt tired. When she woke up she could not talk. She did not have focal weakness. That morning she walked ok. When she came in to do morning chores she could not remember how to do those things like making coffee. She is still having a little trouble organizing. she forgets where the silver drawer is. Her says that day she could not complete a sentence and she was stuttering. But he believes that in the hotter part of the summer that she may have overdone it. She sometimes misses the gender like calling the cat a he not a she. That day she could not make coffee. she has been more agitated of late. she feels like she soon regained her ability to do chores and organize. Her is not quite sure about that. Seizure History: No Place: Home Review of Systems 2 General: Reports: 10 or more systems reviewed and unremarkable except in HPI and below Narrative: Review of systems is notable for mental status changes and behavior changes since her stroke. Tonight it is notable for seizure, lethargy, communication difficulty, observed tonic-clonic movements, change in mental status. PFSH ED 2 PFSH: Medical History Seronegative rheumatoid arthritis of both hands High risk medication use Lateral epicondylitis of both elbows Inflammatory arthritis Acute otitis externa Surgical History History of parathyroid surgery H/O esophagogastroduodenoscopy (03/09/20) normal History of hip replacement left History of eye surgery both History of benign breast biopsy H/O colonoscopy (03/09/20) diverticulosis Family History Mother Parkinson disease Stroke Father Stroke Other Cancer Denies family history of Lupus (systemic lupus erythematosus) Rheumatoid arthritis Diabetes Chronic kidney disease (CKD) Anesthesia complication Bleeding disorder Lung disease Social History Smoking and tobacco/nicotine status: former use of tobacco/nicotine (last cig in 2004) Alcohol intake: current Alcohol intake frequency: holidays/special occasions only Substance/Drug Use: never Lives independently: Yes Household members: spouse Marital status: Current occupational status: retired Physical Exam 2 Narrative: EXAM NARRATIVE: Upon arriving in the room, the patient seems to be starting to go into a seizure. She was staring and then subsequently had tonic-clonic movements of low amplitude in both upper extremities. She started to appear pale and was puffing her cheeks. I grabbed a vomitus basin and within seconds she vomited. It lasted 1 to 2 minutes and then afterwards she seemed postictal. She was able to talk but seem to have both receptive and expressive aphasia (incomplete). Her pupils are equal round and reactive to light. She seems to be able to look in any direction in the room without any obvious extraocular movement impairment. I do not see any trauma on examination. She does not have any facial droop. She does not seem to have any focal neurologic deficits such as unilateral drooping, weakness, numbness. She does appear slightly underweight. History is obtained from the because she has impaired mental status. She follows some basic commands but not all. HENMT: COMMON NORMALS: normocephalic, atraumatic and external ears normal H EAD & SCALP: normocephalic and atraumatic EXTERNAL EAR: Yes external ears normal Eye: COMMON NORMALS: conjunctivae normal and no scleral icterus C ONJUNCTIVA: Yes conjunctivae normal Neck/C-Spine: GENERAL: Yes normal visual inspection and Yes trachea midline Resp: COMMON NORMALS: normal respiratory effort, No use of accessory muscles and clear to auscultation bilaterally AUSCULTATION: clear to auscultation bilaterally Cardio: COMMON NORMALS: regular rhythm RHYTHM: regular rhythm GI: COMMON NORMALS: Soft to palpation PALPATION: Yes Soft to palpation and No Guarding due to palpation present (GI) Extremity: COMMON NORMALS: normal to inspection Skin: COMMON NORMALS: no rashes or lesions noted, turgor normal and no jaundice GENERAL SKIN EXAM: no rashes or lesions noted and turgor normal Course 2 Vital Signs: Vital signs: Vital Signs Temperature 98.2 F 09/19/23 18:30 Pulse Rate 69 09/19/23 21:00 Respiratory Rate 17 09/19/23 20:30 Blood Pressure 127/58 09/19/23 21:00 Pulse Oximetry 96 09/19/23 21:00 Oxygen Delivery Me thod Room Air 09/19/23 20:30 MDM - Seizure MDM Narrative Medical decision making narrative: New onset seizure with recent ischemic/hemorrhagic conversion stroke in June. PCP and radiologist concerned there may be an underlying mass. Patient will need an emergent CT of the head with and without contrast. She did have a seizure in the emergency department and was given 1 mg of Ativan and 4 of Zofran. I discussed possible intubation with the who is a DURABLE POWER OF DIESEL AUTOMOTIVE TECHNICIAN. He would prefer not to. I am hopeful that we can get the patient to CT scan without any incident. Have asked that the nurse go with the patient. If there appears to be imminent vomiting, another seizure, or any signs of impairment of the airway, we will have to change the plan and do prophylactic intubation. UPDATE: Patient CT scan of the head with and without contrast did not show any masses, bleeds, or acute findings. Within about 30 minutes, the patient had returned to her baseline. I discussed with the patient and her . We are going to go ahead and admit tonight given this is a new onset of seizure. I suspect the seizure is as a result of the encephalomalacia and damaged brain tissue from her prior stroke. Patient loaded with Kathryn. Discussed with Dr. Jaramillo for admission. Lab Data 09/19/23 20:20 09/19/23 20:20 Labs: Radiology Impressions Head CT 09/19/23 19:27 IMPRESSION: 1. No acute intracranial abnormality. 2. Encephalomalacia in the left parietal lobe redemonstrated. Laboratory Results WBC 8.68 10^3/uL (3.29-11.43) 09/19/23 20:20 RBC 3.78 10^6/uL (3.85-5.65) L 09/19/23 20:20 Hgb 11.10 g/dL (11.27-16.99) L 09/19/23 20:20 Hct 32.0 % (36-47) L 09/19/23 20:20 MCV 84.7 fl (85-98) L 09/19/23 20:20 MCH 29.4 pg (27-33) 09/19/23 20:20 MCHC 34.7 g/dL (30-55) 09/19/23 20:20 RDW 14.0 % (12.1-15.1) 09/19/23 20:20 Plt Count 295 10^3/cmm (157-399) 09/19/23 20:20 MPV 9.5 fL (7.4-10.4) 09/19/23 20:20 Neut % (Auto) 81.3 % 09/19/23 20:20 Lymph % (Auto) 7.5 % 09/19/23 20:20 Surry % (Auto) 10.6 % 09/19/23 20:20 Eos % (Auto) 0.1 % 09/19/23 20:20 Baso % (Auto) 0.3 % 09/19/23 20:20 Neut # (Auto) 7.05 10^3/uL (1.8-7.7) 09/19/23 20:20 Lymph # (Auto) 0.7 10^3/uL (0.8-4.8) L 09/19/23 20:20 [place]ry # (Auto) 0.9 10^3/uL (0.2-0.9) 09/19/23 20:20 Eos # (Auto) 0.0 10^3/uL (0.0-0.8) 09/19/23 20:20 Baso # (Auto) 0.0 10^3/uL (0.0-0.1) 09/19/23 20:20 Nucleated RBC % (auto) 0 % 09/19/23 20:20 Nucleated RBCs # 0.0 /100WBC 09/19/23 20:20 PT 14.20 SECONDS (12.1-14.9) 09/19/23 20:20 INR 1.07 (0.8-1.2) 09/19/23 20:20 APTT 25.9 SECONDS (23.9-36.7) 09/19/23 20:20 Sodium 126 mmol/L (136-145) L 09/19/23 20:20 Potassium 3.9 mmol/L (3.5-5.1) 09/19/23 20:20 Chloride 92 mmol/L (98-107) L 09/19/23 20:20 Carbon Dioxide 26 mmol/L (22-29) 09/19/23 20:20 Anion Gap 11.9 (5-19) 09/19/23 20:20 BUN 14 mg/dL (8-23) 09/19/23 20:20 Creatinine 0.6 mg/dL (0.5-0.9) 09/19/23 20:20 GFR Calculation Not Reportable 09/19/23 20:20 Glucose 162 mg/dL (65-115) H 09/19/23 20:20 POC Glucose 174 mg/dL (70-110) H 09/19/23 20:17 Calculated Osmolality 266 mOsm/kg (285-295) L 09/19/23 20:20 Calcium 8.6 mg/dL (8.5-10.5) 09/19/23 20:20 Total Bilirubin 0.3 mg/dL (0.15-1.2) 09/19/23 20:20 AST 14 U/L (0-32) 09/19/23 20:20 ALT 12 U/L (0-33) 09/19/23 20:20 Alkaline Phosphatase 39 U/L (35-105) 09/19/23 20:20 Total Protein 6.0 g/dL (6.6-8.7) L 09/19/23 20:20 Albumin 3.7 g/dL (3.5-5.2) 09/19/23 20:20 Globulin 2.3 g/dL (1.3-4.6) 09/19/23 20:20 All radiology interpretation(s) finalized by discharge ED provider radiology interpretation(s): CT head w/ and w/o performed -- encephalomalacia but no mass/bleed or acute findings. Discharge Plan Discharge Patient Disposition: Admitted As Inpatient Clinical Impression: New onset seizure Condition: Stable Coding Level of Care Code ED Legal Records Manager for Alfonso Mcallister
[2023-09-19] MEDS: LORazepam 2 mg/mL INJ 10 mL MDV 1 MG IV (19:35)
[2023-09-19] MEDS: ondansetron 2 mg/ML SDV 2 mL 4 MG IVP (19:35)
[2023-09-19] MEDS: iohexol 350 mg/mL 500 mL Btl (per mL) IV (20:02)
[2023-09-19 20:21] LABS: Glucose Point of Care 174 mg/dL (70-110)
[2023-09-19 20:32] LABS: Basophils % 0.3 %; Eosinophils % 0.1 %; Lymphocytes # 0.7 10^3/uL (0.8-4.8); Lymphocytes % 7.5 %; Mean Corpuscular HGB Conc 34.7 g/dL (30-55); Mean Corpuscular Hemoglobin 29.4 pg (27-33); Mean Corpuscular Volume 84.7 fl (85-98); Mean Platelet Volume 9.5 fL (7.4-10.4); Monocytes # 0.9 10^3/uL (0.2-0.9); Monocytes % 10.6 %; Neutrophils # 7.05 10^3/uL (1.8-7.7); Neutrophils % 81.3 %; Nucleated Red Blood Cells % 0 %; Platelet Count 295 10^3/cmm (157-399); Red Blood Count 3.78 10^6/uL (3.85-5.65); White Blood Count 8.68 10^3/uL (3.29-11.43)
[2023-09-19 20:44] LABS: INR 1.07 (0.8-1.2)
[2023-09-19 20:51] LABS: Alanine Aminotransferase 12 U/L (0-33); Albumin Level 3.7 g/dL (3.5-5.2); Alkaline Phosphatase 39 U/L (35-105); Anion Gap 11.9 (5-19); Aspartate Amino Transferase 14 U/L (0-32); Blood Urea Nitrogen 14 mg/dL (8-23); Calcium 8.6 mg/dL (8.5-10.5); Carbon Dioxide 26 mmol/L (22-29); Chloride 92 mmol/L (98-107); Globulin 2.3 g/dL (1.3-4.6); Glucose 162 mg/dL (65-115); Osmolality Calculated 266 mOsm/kg (285-295); Potassium 3.9 mmol/L (3.5-5.1); Sodium 126 mmol/L (136-145); Total Bilirubin 0.3 mg/dL (0.15-1.2)
[2023-09-19 21:19] LABS: Partial Thromboplastin Time 25.9 SECONDS (23.9-36.7)
--- NOTE | 2023-09-19 23:30 | PC.NURSE ---
Received patient from ER. Patient knows name and current month. Patient does not know whee she is or the situation. Reoriented patient to being in [facility]. Patient can follow basic commnds. And asnwer basic questions. Poor historrian. Unable to complete immunization history, med rec and dysphagia eval as patient has difficulty following complicated commands.
--- NOTE | 2023-09-19 23:44 | P.HP_ITS ---
Providers/Chief Complaint 2 Admitting Physician: Peggy Jaramillo MD Primary Care Provider: Lance Camacho MD Chief Complaint: Seizures History of Present Illness Brea Ortiz is a 88 year old female who developed a left parietal stroke complicated by hemorrhagic conversion in June 2023 following which she has had a mild cognitive decline. At baseline patient has some trouble organizing, she has stuttering speech and has intermittent confusion. She was evaluated by neurology July 2023. She is brought to the emergency room today by her who is the primary historian. Patient reported that around 6 PM patient appeared to have had an episode of seizure. He noticed that while watching TV she suddenly became less responsive, was staring off into the distance and then had tonic-clonic movement of her upper extremities. It subsided in about 1 minute but thereafter she was confused and lethargic. She was witnessed to have tonic-clonic seizure involving her upper extremities again in the emergency room for which she received Ativan. The episode lasted about 2 minutes. She was postictal thereafter and was unable to follow any commands. Her mental status since then has been fluctuating. She is intermittently able to be awake enough and answers her name correctly, correctly tells her date of and was able to follow simple commands for the nurses. At the time of my assessment, patient wakes up easily, tells me her name is Brea but unable to answer her last name, unable to tell me her date of , unable to tell me if she is in the hospital or at home. She moves all extremities while laying in bed spontaneously and complains of some back discomfort. CT of the head was performed which showed no acute intracranial abnormality. Encephalomalacia in the left parietal lobe was redemonstrated. No acute events visualized. In July 2023 she had undergone an MRI with contrast which had shown an evolving frontal parietal lobe infarct with hemorrhagic component. Per review of outpatient neurology notes it appears that there was some concern for heterogeneous appearance of lesion in left parietal lobe which may have been an infarct versus tumor. An MRI with contrast was ordered from the outpatient side on 08/30/2023 but is yet to be completed. She was also started on galantamine on this most recent visit on 08/30/2023. Review of Systems 2 General: Reports: ROS unobtainable due to mental status Medications/Allergies Home Medications Medication Instructions Recorded Confirmed Last Taken Type biotin 1 mg capsule 1 mg PO DAILY 02/20/20 09/13/23 03/08/20 History aspirin 81 mg tablet,delayed 81 mg PO DAILY #30 tabs 06/15/23 09/13/23 Unknown Rx release cholecalciferol (vitamin D3) 50 50 mcg PO DAILY 06/15/23 09/13/23 Unknown History mcg (2,000 unit) tablet (Vitamin D3) hydroxychloroquine 200 mg tablet See Rx Instructions PO DAILY #135 08/22/23 09/13/23 Unknown Rx tabs prednisone 20 mg tablet See Rx Instructions PO .COMPLEX 08/22/23 09/13/23 Unknown Rx PRN joint pain flare #30 tabs alprazolam 0.25 mg tablet 0.25 mg PO BID PRN anxiety #30 tabs 08/28/23 09/13/23 Unknown Rx atorvastatin 40 mg tablet 40 mg PO DAILY #30 tabs 08/30/23 09/13/23 Unknown Rx galantamine 4 mg tablet 4 mg PO BID #60 tabs 08/30/23 09/13/23 Unknown Rx fluoxetine 10 mg capsule 10 mg PO DAILY #30 caps 09/13/23 09/13/23 Unknown Rx lisinopril 10 mg tablet 10 mg PO BID #60 tabs 09/13/23 09/13/23 Unknown Rx Allergies Allergy/AdvReac Type Severity Reaction Status Date / Time No Known Drug Allergies Allergy no known Verified 09/19/23 18:36 drug allergies PFSH Acute 2 PFSH: Medical History Seronegative rheumatoid arthritis of both hands High risk medication use Lateral epicondylitis of both elbows Inflammatory arthritis Acute otitis externa Surgical History History of parathyroid surgery H/O esophagogastroduodenoscopy (03/09/20) normal History of hip replacement left History of eye surgery both History of benign breast biopsy H/O colonoscopy (03/09/20) diverticulosis Family History Mother Parkinson disease Stroke Father Stroke Other Cancer Denies family history of Lupus (systemic lupus erythematosus) Rheumatoid arthritis Diabetes Chronic kidney disease (CKD) Anesthesia complication Bleeding disorder Lung disease Social History Smoking and tobacco/nicotine status: former use of tobacco/nicotine (last cig in 2004) Alcohol intake: current Alcohol intake frequency: holidays/special occasions only Substance/Drug Use: never Lives independently: Yes Household members: spouse Marital status: Current occupational status: retired Vitals/I&O/Wt Last Vital Signs Temp 98.2 F 09/19/23 18:30 Pulse 73 09/19/23 23:26 Resp 17 09/19/23 22:00 BP 119/66 09/19/23 23:26 Pulse Ox 100 09/19/23 23:26 O2 Del Method Room Air 09/19/23 22:00 Weight last 48 hrs Weight 48.489 kg Weight 50.349 kg Physical Exam 2 Narrative: General: No acute distress, AO x1 HEENT: PERRLA, pupils bilaterally equal and reactive, pallors not present Chest: Normal vesicular breath sounds, no added sounds, equal good air entry bilaterally CVS: S1-S2 regular, no murmurs, no tachycardia, no gallops, no rubs Abdomen: Soft, nontender, no organomegaly, bowel sounds present Neuro: AAO x 1, moves all extremities while laying in bed, does not consistently follow commands, confused Data 09/19/23 20:20 09/19/23 20:20 Other data: Radiology Impressions Head CT 09/19/23 19:27 IMPRESSION: 1. No acute intracranial abnormality. 2. Encephalomalacia in the left parietal lobe redemonstrated. Laboratory Results WBC 8.68 10^3/uL (3.29-11.43) 09/19/23 20:20 RBC 3.78 10^6/uL (3.85-5.65) L 09/19/23 20:20 Hgb 11.10 g/dL (11.27-16.99) L 09/19/23 20:20 Hct 32.0 % (36-47) L 09/19/23 20:20 MCV 84.7 fl (85-98) L 09/19/23 20:20 MCH 29.4 pg (27-33) 09/19/23 20:20 MCHC 34.7 g/dL (30-55) 09/19/23 20:20 RDW 14.0 % (12.1-15.1) 09/19/23 20:20 Plt Count 295 10^3/cmm (157-399) 09/19/23 20:20 MPV 9.5 fL (7.4-10.4) 09/19/23 20:20 Neut % (Auto) 81.3 % 09/19/23 20:20 Lymph % (Auto) 7.5 % 09/19/23 20:20 Jennings % (Auto) 10.6 % 09/19/23 20:20 Eos % (Auto) 0.1 % 09/19/23 20:20 Baso % (Auto) 0.3 % 09/19/23 20:20 Neut # (Auto) 7.05 10^3/uL (1.8-7.7) 09/19/23 20:20 Lymph # (Auto) 0.7 10^3/uL (0.8-4.8) L 09/19/23 20:20 Jennings # (Auto) 0.9 10^3/uL (0.2-0.9) 09/19/23 20:20 Eos # (Auto) 0.0 10^3/uL (0.0-0.8) 09/19/23 20:20 Baso # (Auto) 0.0 10^3/uL (0.0-0.1) 09/19/23 20:20 Nucleated RBC % (auto) 0 % 09/19/23 20:20 Nucleated RBCs # 0.0 /100WBC 09/19/23 20:20 PT 14.20 SECONDS (12.1-14.9) 09/19/23 20:20 INR 1.07 (0.8-1.2) 09/19/23 20:20 APTT 25.9 SECONDS (23.9-36.7) 09/19/23 20:20 Sodium 126 mmol/L (136-145) L 09/19/23 20:20 Potassium 3.9 mmol/L (3.5-5.1) 09/19/23 20:20 Chloride 92 mmol/L (98-107) L 09/19/23 20:20 Carbon Dioxide 26 mmol/L (22-29) 09/19/23 20:20 Anion Gap 11.9 (5-19) 09/19/23 20:20 BUN 14 mg/dL (8-23) 09/19/23 20:20 Creatinine 0.6 mg/dL (0.5-0.9) 09/19/23 20:20 GFR Calculation Not Reportable 09/19/23 20:20 Glucose 162 mg/dL (65-115) H 09/19/23 20:20 POC Glucose 174 mg/dL (70-110) H 09/19/23 20:17 Calculated Osmolality 266 mOsm/kg (285-295) L 09/19/23 20:20 Calcium 8.6 mg/dL (8.5-10.5) 09/19/23 20:20 Total Bilirubin 0.3 mg/dL (0.15-1.2) 09/19/23 20:20 AST 14 U/L (0-32) 09/19/23 20:20 ALT 12 U/L (0-33) 09/19/23 20:20 Alkaline Phosphatase 39 U/L (35-105) 09/19/23 20:20 Total Protein 6.0 g/dL (6.6-8.7) L 09/19/23 20:20 Albumin 3.7 g/dL (3.5-5.2) 09/19/23 20:20 Globulin 2.3 g/dL (1.3-4.6) 09/19/23 20:20 A&P Assessment and plan (1) Seizure as late effect of cerebrovascular accident (CVA): 88-year-old lady with stroke in June 2023 thereafter complicated by cognitive decline and memory impairments. Presenting to the emergency room today with new onset seizure. Witnessed seizure in the emergency room with tonic-clonic movements of the upper extremities lasting for about 2 minutes. It seems like seizure subsided prior to her receiving Ativan. Thus far she has been loaded with Keppra 500 mg in the emergency room. Given additional 500 mg to make a total dose loading dose of 1000 mg IV Keppra. Start Keppra 500 mg twice daily scheduled dosing. CT of the head taken today showing encephalomalacia and changes of prior stroke, no acute intracranial events noted Currently patient is confused, disoriented, unable to follow any commands consistently. This appears to be different than her baseline. Suspect this to be related to postictal state. Will closely monitor in the ICU tonight for any further seizure episodes, closely monitor for GCS for any deterioration. Patient had 1-2 episodes of vomiting after having her seizure in the emergency room. Does not appear to have aspirated. Lungs are clear to auscultation currently. Mild hyponatremia, sodium at 126, may be related to dehydration from GI loss, unlikely to be contributing to seizures. Check TSH. DVT prophylaxis: Lovenox DNR/DNI per patient's . Attestations 2 Medical Necessity Statement*: Greater than 2 midnight stay is anticipated at this time for new onset seizures, neuromonitoring. Coding Level of Care Code Acute Code for Chg Fwd High MDM includes number and complexity of problems actively addressed during encounter, amount and/or complexity of data reviewed/ordered and described risk of complication, morbidity or mortality of management as documented Diagnoses Seizure as late effect of cerebrovascular accident (CVA) I69.398; R56.9
[2023-09-20] VITALS (56 sets, daily range): BP systolic 103–136; BP diastolic 50–73; PULSE 52–70; RESP 10–24; TEMP 36.6–36.8; O2SAT 88–100
[2023-09-20] MEDS: sodium chloride 0.9% 1,000 ML 75 ML IV ×2 (00:27→14:02)
[2023-09-20] MEDS: levETIRAcetam 500 MG/100 ML PREMIX 400 MG IV (00:27)
[2023-09-20] MEDS: ondansetron 2 mg/ML SDV 2 mL 4 MG IVP (00:31)
[2023-09-20 01:10] LABS: Thyroid Stimulating Hormone 5.27 uIU/mL (0.27-4.20)
[2023-09-20 04:41] LABS: Basophils % 0.5 %; Eosinophils # 0.1 10^3/uL (0.0-0.8); Eosinophils % 0.6 %; Hematocrit 33.4 % (36-47); Lymphocytes # 1.9 10^3/uL (0.8-4.8); Mean Corpuscular HGB Conc 33.2 g/dL (30-55); Mean Corpuscular Hemoglobin 28.9 pg (27-33); Mean Platelet Volume 9.5 fL (7.4-10.4); Monocytes # 1.2 10^3/uL (0.2-0.9); Monocytes % 15.3 %; Neutrophils # 4.75 10^3/uL (1.8-7.7); Neutrophils % 59.3 %; Nucleated Red Blood Cells % 0 %; Platelet Count 220 10^3/cmm (157-399); Red Blood Count 3.84 10^6/uL (3.85-5.65); Red Cell Distribution Width 14.3 % (12.1-15.1)
[2023-09-20 05:06] LABS: Alanine Aminotransferase 11 U/L (0-33); Albumin Level 3.6 g/dL (3.5-5.2); Alkaline Phosphatase 39 U/L (35-105); Anion Gap 13.4 (5-19); Aspartate Amino Transferase 17 U/L (0-32); Blood Urea Nitrogen 13 mg/dL (8-23); Calcium 8.8 mg/dL (8.5-10.5); Carbon Dioxide 25 mmol/L (22-29); Chloride 99 mmol/L (98-107); Globulin 2.5 g/dL (1.3-4.6); Glucose 82 mg/dL (65-115); Osmolality Calculated 275 mOsm/kg (285-295); Potassium 4.4 mmol/L (3.5-5.1); Sodium 133 mmol/L (136-145); Total Bilirubin 0.4 mg/dL (0.15-1.2); Total Protein 6.1 g/dL (6.6-8.7)
--- NOTE | 2023-09-20 05:19 | PC.NURSE ---
Spoke with patient's on the telephone as he called to get an update on patient's conition.
--- NOTE | 2023-09-20 09:22 | PC.PHAR ---
pts verified pts medications-pts states the pt is not taking plavix 75mg daily anymore states not taken for a while ext shows last filled 06/15/23 30d/s-
[2023-09-20] MEDS: levETIRAcetam 500 mg Tablet PO ×2 (09:57→17:27)
[2023-09-20] MEDS: fluoxetine 10 mg Capsule PO (09:57)
[2023-09-20] MEDS: aspirin 81 mg EC Tablet PO (09:57)
[2023-09-20] MEDS: enoxaparin 40 mg/0.4 mL Syringe SUBCUT (09:57)
[2023-09-20] MEDS: pantoprazole DR 40 mg Tablet PO (09:57)
[2023-09-20 12:42] LABS: Iron 28 ug/dL (37-145); Percent Saturation 13.4 % (20-50); Total Iron Binding Capacity 208 mcg/dl; Unsaturated Iron Binding 180 ug/dL (112-347)
[2023-09-20 12:56] LABS: Vitamin B12 308 pg/mL (232-1245)
[2023-09-20 14:05] LABS: Free T4 Free Thyroxine 1.35 ng/dL (0.82-1.77); T3 Free 2.5 PG/ML (2.0-4.4)
--- NOTE | 2023-09-20 15:20 | PC.NURSE ---
repositioned up to bsc with assist per one no seizure activity noted
--- NOTE | 2023-09-20 16:42 | PM.PN ---
Subjective Subjective: Admitted overnight. H&P and labs appreciated. Seen with at bedside. Patient is awake and alert and able to have complete conversation. Patient today is back to baseline mentation as per . On examination patient having her breakfast without any difficulty. Denies any nausea, vomiting, headache. Otherwise has remained hemodynamically stable and afebrile on room air. Vitals/I&O/Wt Last Vital Signs Temp 98 F 09/20/23 14:00 Pulse 60 09/20/23 14:00 Resp 15 09/20/23 14:00 BP 136/56 09/20/23 14:00 Pulse Ox 96 09/20/23 14:00 O2 Del Method Room Air 09/20/23 09:37 09/20/23 09/20/23 09/20/23 06:59 14:59 22:59 Intake Total 1700 / 1700 Output Total 150 / 150 Balance 1550 / 1550 Weight last 48 hrs Weight 49.396 kg Weight 48.489 kg Weight 50.349 kg Physical Exam Narrative: General: No acute distress, AO x 2-3 HEENT: PERRLA, pupils bilaterally equal and reactive, pallors not present Chest: Normal vesicular breath sounds, no added sounds, equal good air entry bilaterally CVS: S1-S2 regular, no murmurs, no tachycardia, no gallops, no rubs Abdomen: Soft, nontender, no organomegaly, bowel sounds present Neuro: AAO x 1, moves all extremities while laying in bed, does not consistently follow commands, confused Data 09/20/23 04:10 09/20/23 04:10 A&P Assessment and plan (1) Seizure as late effect of cerebrovascular accident (CVA): 88-year-old lady with stroke in June 2023 thereafter complicated by cognitive decline and memory impairments. Presenting to the emergency room today with new onset seizure. Witnessed seizure in the emergency room with tonic-clonic movements of the upper extremities lasting for about 2 minutes. It seems like seizure subsided prior to her receiving Ativan. Most likely in setting of oversensitivity to seizure activity secondary to recent stroke leading to encephalomalacia in setting of hyponatremia. No further seizures. Continue with Keppra 500 mg oral twice daily. Seizure precautions. PT/speech therapy. Advance diet as per speech therapy. Appreciate TSH levels. (2) Hyponatremia: Hyponatremia: Improving. 124 on admission. Up to 133. Continue with IV hydration with normal saline at 75 cc/h. Check urinalysis, urine lites. TSH elevated. Check free T3 and free T4. (3) Mild cognitive impairment with memory loss: Plan DNR/DNI Advance diet as per speech therapy. Protonix for PUD prophylaxis Lovenox for DVT prophylaxis Transfer to [facility] floor. Attestations Medical Necessity Statement*: Requires further hospitalization for management of seizure activity in setting of recent stroke and encephalomalacia Diagnoses Seizure as late effect of cerebrovascular accident (CVA) I69.398; R56.9 Hyponatremia E87.1 Mild cognitive impairment with memory loss G31.84
--- NOTE | 2023-09-20 17:40 | PC.NURSE ---
report called to 2nd floor and ready for transfer 279 bed 2
[2023-09-20] MEDS: atorvastatin 40 mg Tablet PO (20:48)
[2023-09-21 00:05] VITALS: BP 129/68; PULSE 62; RESP 16; TEMP 36.6; O2SAT 98
[2023-09-21] MEDS: sodium chloride 0.9% 1,000 ML 75 ML IV (01:59)
[2023-09-21 04:14] VITALS: BP 147/68; PULSE 66; RESP 16; TEMP 36.7; O2SAT 98
[2023-09-21 07:04] LABS: Basophils % 0.8 %; Eosinophils # 0.1 10^3/uL (0.0-0.8); Eosinophils % 1.4 %; Hematocrit 33.2 % (36-47); Lymphocytes # 1.6 10^3/uL (0.8-4.8); Lymphocytes % 31.2 %; Mean Corpuscular HGB Conc 32.8 g/dL (30-55); Mean Corpuscular Hemoglobin 29.5 pg (27-33); Mean Corpuscular Volume 89.7 fl (85-98); Mean Platelet Volume 9.7 fL (7.4-10.4); Monocytes # 0.7 10^3/uL (0.2-0.9); Monocytes % 13.4 %; Neutrophils # 2.69 10^3/uL (1.8-7.7); Neutrophils % 52.8 %; Nucleated Red Blood Cells % 0 %; Platelet Count 294 10^3/cmm (157-399); Red Cell Distribution Width 14.4 % (12.1-15.1); White Blood Count 5.09 10^3/uL (3.29-11.43)
[2023-09-21 07:18] VITALS: BP 147/61; PULSE 74; RESP 16; TEMP 36.3; O2SAT 99
[2023-09-21 07:34] LABS: Alanine Aminotransferase 11 U/L (0-33); Albumin Level 3.3 g/dL (3.5-5.2); Alkaline Phosphatase 38 U/L (35-105); Anion Gap 11.8 (5-19); Aspartate Amino Transferase 14 U/L (0-32); Blood Urea Nitrogen 7 mg/dL (8-23); Calcium 8.3 mg/dL (8.5-10.5); Carbon Dioxide 24 mmol/L (22-29); Chloride 105 mmol/L (98-107); Globulin 2.5 g/dL (1.3-4.6); Glucose 86 mg/dL (65-115); Magnesium 1.7 mg/dL (1.7-2.3); Osmolality Calculated 281 mOsm/kg (285-295); Phosphorus 3.4 mg/dL (2.5-4.5); Potassium 3.8 mmol/L (3.5-5.1); Sodium 137 mmol/L (136-145); Total Bilirubin 0.4 mg/dL (0.15-1.2); Total Protein 5.8 g/dL (6.6-8.7)
[2023-09-21 07:56] LABS: Folate Level 16.8 ng/mL (4.8-37.3)
[2023-09-21] MEDS: levETIRAcetam 500 mg Tablet PO (09:50)
[2023-09-21] MEDS: fluoxetine 10 mg Capsule PO (09:50)
[2023-09-21] MEDS: enoxaparin 40 mg/0.4 mL Syringe SUBCUT (09:50)
[2023-09-21] MEDS: pantoprazole DR 40 mg Tablet PO (09:50)
[2023-09-21] MEDS: aspirin 81 mg EC Tablet PO (09:50)
[2023-09-21] MEDS: gadobenate dimeglumine 20 mL vial IV (11:42)
--- NOTE | 2023-09-21 12:07 | PM.DCS ---
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 At baseline patient has some trouble organizing, she has stuttering speech and has intermittent confusion. She was evaluated by neurology July 2023. She is brought to the emergency room today by her who is the primary historian. Patient reported that around 6 PM patient appeared to have had an episode of seizure. He noticed that while watching TV she suddenly became less responsive, was staring off into the distance and then had tonic-clonic movement of her upper extremities. It subsided in about 1 minute but thereafter she was confused and lethargic. She was witnessed to have tonic-clonic seizure involving her upper extremities again in the emergency room for which she received Ativan. The episode lasted about 2 minutes. She was postictal thereafter and was unable to follow any commands. Her mental status since then has been fluctuating. She is intermittently able to be awake enough and answers her name correctly, correctly tells her date of and was able to follow simple commands for the nurses. At the time of my assessment, patient wakes up easily, tells me her name is Brea but unable to answer her last name, unable to tell me her date of , unable to tell me if she is in the hospital or at home. She moves all extremities while laying in bed spontaneously and complains of some back discomfort. CT of the head was performed which showed no acute intracranial abnormality. Encephalomalacia in the left parietal lobe was redemonstrated. No acute events visualized. In July 2023 she had undergone an MRI with contrast which had shown an evolving frontal parietal lobe infarct with hemorrhagic component. Per review of outpatient neurology notes it appears that there was some concern for heterogeneous appearance of lesion in left parietal lobe which may have been an infarct versus tumor. An MRI with contrast was ordered from the outpatient side on 08/30/2023 but is yet to be completed. She was also started on galantamine on this most recent visit on 08/30/2023. Hospital Course Hospital Course Patient was admitted to the hospital for further evaluation and management of G TCS. She was started on IV Keppra. Patient's mentation slowly resolved during hospitalization. She is back to her baseline mentation and physical activities. It is believed that her seizures are most likely in setting of increased sensitivity of brain to seizures secondary to post stroke encephalomalacia from hyponatremia which was present on admission. Hyponatremia resolved with IV hydration and sodium has been constantly improving to 137. Patient also had MRI of brain which was ordered outpatient by neurologist while she was in the hospital. Patient was seen by PT and PT during hospitalization and diet was changed accordingly. She has been discharged in hemodynamically stable condition on Keppra 5 mg twice daily. She is to follow-up with a primary care provider within next 1 week and with neurologist within the next 10 days. Physical Exam Narrative: General: No acute distress, AO x 2-3 HEENT: PERRLA, pupils bilaterally equal and reactive, pallors not present Chest: Normal vesicular breath sounds, no added sounds, equal good air entry bilaterally CVS: S1-S2 regular, no murmurs, no tachycardia, no gallops, no rubs Abdomen: Soft, nontender, no organomegaly, bowel sounds present Neuro: AAO x 1, moves all extremities while laying in bed, does not consistently follow commands, confused Discharge Data Studies Completed and Pending Completed Studies During Hospitalization Category Date Time Status CT head wo/w con [id number] Stat Cat Scan 09/19/23 19:27 Completed Pending at discharge Category Date Time Status MAG [Magnesium] AM LABS Lab 09/22/23 04:00 Ordered MAG [Magnesium] AM LABS Lab 09/23/23 04:00 Ordered PHOS [Phosphorus] AM LABS Lab 09/22/23 04:00 Ordered PHOS [Phosphorus] AM LABS Lab 09/23/23 04:00 Ordered MR head wo/w con [id number] Routine MRI 09/21/23 12:26 Taken Radiology Impressions Head CT 09/19/23 19:27 IMPRESSION: 1. No acute intracranial abnormality. 2. Encephalomalacia in the left parietal lobe redemonstrated. Laboratory Results WBC 5.09 10^3/uL (3.29-11.43) 09/21/23 06:43 RBC 3.70 10^6/uL (3.85-5.65) L 09/21/23 06:43 Hgb 10.90 g/dL (11.27-16.99) L 09/21/23 06:43 Hct 33.2 % (36-47) L 09/21/23 06:43 MCV 89.7 fl (85-98) 09/21/23 06:43 MCH 29.5 pg (27-33) 09/21/23 06:43 MCHC 32.8 g/dL (30-55) 09/21/23 06:43 RDW 14.4 % (12.1-15.1) 09/21/23 06:43 Plt Count 294 10^3/cmm (157-399) D 09/21/23 06:43 MPV 9.7 fL (7.4-10.4) 09/21/23 06:43 Neut % (Auto) 52.8 % 09/21/23 06:43 Lymph % (Auto) 31.2 % 09/21/23 06:43 [place] % (Auto) 13.4 % 09/21/23 06:43 Eos % (Auto) 1.4 % 09/21/23 06:43 Baso % (Auto) 0.8 % 09/21/23 06:43 Neut # (Auto) 2.69 10^3/uL (1.8-7.7) 09/21/23 06:43 Lymph # (Auto) 1.6 10^3/uL (0.8-4.8) 09/21/23 06:43 [place] # (Auto) 0.7 10^3/uL (0.2-0.9) 09/21/23 06:43 Eos # (Auto) 0.1 10^3/uL (0.0-0.8) 09/21/23 06:43 Baso # (Auto) 0.0 10^3/uL (0.0-0.1) 09/21/23 06:43 Nucleated RBC % (auto) 0 % 09/21/23 06:43 Nucleated RBCs # 0.0 /100WBC 09/21/23 06:43 PT 14.20 SECONDS (12.1-14.9) 09/19/23 20:20 INR 1.07 (0.8-1.2) 09/19/23 20:20 APTT 25.9 SECONDS (23.9-36.7) 09/19/23 20:20 Sodium 137 mmol/L (136-145) 09/21/23 06:43 Potassium 3.8 mmol/L (3.5-5.1) 09/21/23 06:43 Chloride 105 mmol/L (98-107) 09/21/23 06:43 Carbon Dioxide 24 mmol/L (22-29) 09/21/23 06:43 Anion Gap 11.8 (5-19) 09/21/23 06:43 BUN 7 mg/dL (8-23) L 09/21/23 06:43 Creatinine 0.7 mg/dL (0.5-0.9) 09/21/23 06:43 GFR Calculation Not Reportable 09/21/23 06:43 Glucose 86 mg/dL (65-115) 09/21/23 06:43 POC Glucose 174 mg/dL (70-110) H 09/19/23 20:17 Calculated Osmolality 281 mOsm/kg (285-295) L 09/21/23 06:43 Calcium 8.3 mg/dL (8.5-10.5) L 09/21/23 06:43 Phosphorus 3.4 mg/dL (2.5-4.5) 09/21/23 06:43 Phosphorus Cancelled 09/21/23 06:43 Magnesium 1.7 mg/dL (1.7-2.3) 09/21/23 06:43 Magnesium Cancelled 09/21/23 06:43 Iron 28 ug/dL (37-145) L 09/20/23 04:10 TIBC 208 mcg/dl 09/20/23 04:10 % Saturation 13.4 % (20-50) L 09/20/23 04:10 Unsat Iron Binding 180 ug/dL (112-347) 09/20/23 04:10 Total Bilirubin 0.4 mg/dL (0.15-1.2) 09/21/23 06:43 AST 14 U/L (0-32) 09/21/23 06:43 ALT 11 U/L (0-33) 09/21/23 06:43 Alkaline Phosphatase 38 U/L (35-105) 09/21/23 06:43 Total Protein 5.8 g/dL (6.6-8.7) L 09/21/23 06:43 Albumin 3.3 g/dL (3.5-5.2) L 09/21/23 06:43 Globulin 2.5 g/dL (1.3-4.6) 09/21/23 06:43 Vitamin B12 308 pg/mL (232-1245) 09/20/23 04:10 Folate 16.8 ng/mL (4.8-37.3) 09/21/23 06:43 TSH 5.27 uIU/mL (0.27-4.20) H 09/19/23 20:20 Free T4 1.35 ng/dL (0.82-1.77) 09/20/23 04:10 Free T3 2.5 PG/ML (2.0-4.4) 09/20/23 04:10 Vitals Last Vital Signs Temp 97.4 F L 09/21/23 07:18 Pulse 74 09/21/23 07:18 Resp 16 09/21/23 07:18 BP 147/61 09/21/23 07:18 Pulse Ox 99 09/21/23 07:18 O2 Del Method Room Air 09/21/23 07:18 Discharge Plan Discharge Patient Disposition: Home Condition: Stable Prescriptions: New levetiracetam 500 mg Tablet 500 mg PO BID Qty: 60 0RF Continued hydroxychloroquine 200 mg tablet See Rx Instructions PO DAILY Qty: 135 1RF Rx Instructions: alternate taking 1 tab today and 2 tabs tomorrow PO daily; prednisone 20 mg tablet See Rx Instructions PO .COMPLEX PRN (Reason: joint pain flare) Qty: 30 1RF Rx Instructions: take 1 tab po daily for 3-7 days PRN joint pain flare galantamine 4 mg tablet 4 mg PO BID Qty: 60 3RF Rx Instructions: administer with AM and PM meals lisinopril 10 mg tablet 10 mg PO BID Qty: 60 11RF alprazolam 0.25 mg tablet 0.25 mg PO BID PRN (Reason: anxiety) Qty: 30 2RF atorvastatin 40 mg tablet 40 mg PO QAM aspirin 81 mg tablet,delayed release (DR/EC) 81 mg PO QAM fluoxetine 10 mg capsule 10 mg PO BEDTIME Discharge Orders: Discharge Order (Routine); Ordered 09/21/23 Ordered By: Jaylan Willams Referrals: Lance Camacho MD [Primary Care Provider] - 7-10 days Pinky Mejía MD [Physician] - 3 weeks Discharge Diet: As Directed Discharge Activity: Resume usual activity and Increase activity as tolerated Patient Instructions: Levetiracetam (By mouth), Stroke (GEN), Opioid Safety, Stroke Stoplight, Seizures Activity Restrictions/Additional Instructions: Please follow-up with a primary care provider within next 7 to 10 days for repeat BMP. Level 6 dysphagia diet with regular liquids. Continue all your other medications as before. Keppra 500 mg twice daily has been added to your medication list Discharge Attestations Time Spent in Discharge Care*: greater than 30 min Specific Discharge Activities: educating patient, educating and/or supporting family/caregiver, discussing with pcp/other providers, discussing with rifle case repairer/social workers/dc planners, documenting/other paperwork and evaluating patient/reviewing data Status at Discharge: Cognitive status at discharge: mildly impaired cognition, Behavioral status at discharge: cooperative, Functional status at discharge: uses cane/walker, Overall status at discharge: patient is back to baseline Quality Metrics Clinical Quality Measures [ No reported AMI, CVA or VTE this stay] Coding Level of Care Code 21880 Total time (in minutes) for Discharge: 50 Diagnoses Seizure as late effect of cerebrovascular accident (CVA) I69.398; R56.9 Hyponatremia E87.1 Mild cognitive impairment with memory loss G31.84
--- NOTE | 2023-09-21 12:26 | MR_ITS ---
WS: [id number] MRI BRAIN WITH AND WITHOUT CONTRAST HISTORY: seizure COMPARISON: Prior MRI 07/12/[address] head 09/19/2023 TECHNIQUE: Multiplanar imaging performed through the brain with MultiHance 10 ml's IV. Subacute infarct involving the LEFT posterior parietal lobe with encephalomalacia developing is reide ntified. There is some very mild but increased diffusion signal in the periphery of the infarct. Susp ect there may be new very subtle areas of new infarction associated with the prior infarct. There is no midline shift. The hemosiderin that was described on the prior study is reidentified consistent wi th a hemorrhagic infarct. No enhancement. There is no underlying mass identified. Additional mild small vessel ischemic disease. Ventricles and extra-axial spaces are normal. Clivus and pituitary gland are normal. Visualized posterior fossa and brainstem are also normal. Paranasal sinuses: Well aerated with no significant disease. Mastoid air cells: Normal. Calvarium and scalp: Normal. IMPRESSION: 1. Moderate size subacute LEFT posterior parietal lobe hemorrhagic infarct is reidentified. There is some very subtle increased diffusion signal in the periphery of the infarct suggesting there may be mild or very minimal progression of ischemia. No new hemorrhage. 2. No enhancing masses.
[2023-09-21 13:38] VITALS: BP 147/61; PULSE 74; RESP 16; TEMP 36.3; O2SAT 99
== END 2023-09-21 13:00 | disposition home health service (06) | DRG 57 ==
LOC: ER 21:53 → ICU 22:23 → MEDSURG 09-20 17:52
PROVIDERS: Admitting Provider Student in an Organized Health Care Education/Training Program; Emergency Provider Emergency Medicine; PCP Family Medicine; Visit Provider Student in an Organized Health Care Education/Training Program
DX: I69.398 Other sequelae of cerebral infarction (principal); E87.1 Hypo-osmolality and hyponatremia; R56.9 Unspecified convulsions; M06.042 Rheumatoid arthritis without rheumatoid factor, left hand; M06.041 Rheumatoid arthritis without rheumatoid factor, right hand; Z87.891 Personal history of nicotine dependence; E86.0 Dehydration; G93.89 Other specified disorders of brain; Z66 Do not resuscitate; I69.311 Memory deficit following cerebral infarction
CPT/HCPCS: 36415; 36416; 70470; 70553; 80053; 82607; 82746; 82962; 83540; 83550; 83735; 84100; 84439; 84443; 84481; 85025; 85610; 85730; 92523; 92610; 93005; 96365; 96372; 96375; 96376; 97116; 97162; 99285; A9577; J1650; J1953; J2060; J2405; J7030; Q9967

== ENCOUNTER → 2023-09-27 09:48 | Outpatient (BNVA) | payer MEDICARE, SELFPAY | PROVIDERS: PCP Family Medicine; Visit Provider Family Medicine | DX: E87.1 Hypo-osmolality and hyponatremia (principal); I69.398 Other sequelae of cerebral infarction; R56.9 Unspecified convulsions | CPT/HCPCS: 80048 ==

== ENCOUNTER → 2023-10-08 14:53 | Outpatient (BNVA) | payer MEDICARE, SELFPAY | PROVIDERS: PCP Family Medicine; Visit Provider Specialist | DX: I69.398 Other sequelae of cerebral infarction (principal); R56.9 Unspecified convulsions; G31.84 Mild cognitive impairment of uncertain or unknown etiology; I10 Essential (primary) hypertension | CPT/HCPCS: 99215 ==

== ENCOUNTER 2023-10-17 10:50 | Outpatient (RCR) | payer MEDICARE, SELFPAY | END 2023-11-08 23:59 | disposition home or self-care (01) | LOC: SST 10:50 | PROVIDERS: PCP Specialist; Visit Provider Specialist | DX: Z86.73 Personal history of transient ischemic attack (TIA), and cerebral infarction without residual deficits (principal); G31.84 Mild cognitive impairment of uncertain or unknown etiology; R56.9 Unspecified convulsions | CPT/HCPCS: 92507; 92523; 92610 ==

== ENCOUNTER → 2023-11-21 14:07 | Outpatient (BNVA) | payer MEDICARE, SELFPAY | PROVIDERS: PCP Family Medicine; Visit Provider Internal Medicine Rheumatology | DX: M06.041 Rheumatoid arthritis without rheumatoid factor, right hand (principal); M06.042 Rheumatoid arthritis without rheumatoid factor, left hand; Z79.899 Other long term (current) drug therapy; M77.11 Lateral epicondylitis, right elbow; M77.12 Lateral epicondylitis, left elbow | CPT/HCPCS: 99214 ==

== ENCOUNTER → 2024-01-08 11:30 | Outpatient (BNVA) | payer MEDICARE, SELFPAY | PROVIDERS: PCP Family Medicine; Visit Provider Specialist | DX: I63.512 Cerebral infarction due to unspecified occlusion or stenosis of left middle cerebral artery (principal); G47.10 Hypersomnia, unspecified; I63.412 Cerebral infarction due to embolism of left middle cerebral artery | CPT/HCPCS: 99214 ==

== ENCOUNTER 2024-04-07 10:00 | Outpatient (CLI) | payer MEDICARE, SELFPAY ==
[2024-04-07 10:57] LABS: Basophils # 0.1 10^3/uL (0.0-0.1); Basophils % 1.3 %; Eosinophils # 0.1 10^3/uL (0.0-0.8); Eosinophils % 1.3 %; Hematocrit 35.5 % (36-47); Lymphocytes # 1.6 10^3/uL (0.8-4.8); Lymphocytes % 34.5 %; Mean Corpuscular HGB Conc 32.4 g/dL (30-55); Mean Corpuscular Hemoglobin 29.6 pg (27-33); Mean Corpuscular Volume 91.5 fl (85-98); Mean Platelet Volume 10.2 fL (7.4-10.4); Monocytes # 0.6 10^3/uL (0.2-0.9); Monocytes % 12.5 %; Neutrophils # 2.25 10^3/uL (1.8-7.7); Neutrophils % 50.2 %; Nucleated Red Blood Cells % 0 %; Platelet Count 249 10^3/cmm (157-399); Red Blood Count 3.88 10^6/uL (3.85-5.65); White Blood Count 4.49 10^3/uL (3.29-11.43)
[2024-04-07 11:12] LABS: Alanine Aminotransferase 15 U/L (0-33); Albumin Level 4.1 g/dL (3.5-5.2); Alkaline Phosphatase 63 U/L (35-105); Aspartate Amino Transferase 20 U/L (0-32); Globulin 2.7 g/dL (1.3-4.6); Total Bilirubin 0.5 mg/dL (0.15-1.2); Total Protein 6.8 g/dL (6.6-8.7)
== END 2024-04-07 10:01 | disposition home or self-care (01) ==
LOC: LAB 10:02
PROVIDERS: PCP Family Medicine; Visit Provider Internal Medicine Rheumatology
DX: M06.041 Rheumatoid arthritis without rheumatoid factor, right hand (principal); M06.042 Rheumatoid arthritis without rheumatoid factor, left hand; Z79.899 Other long term (current) drug therapy
CPT/HCPCS: 36415; 80076; 82565; 85025; 86140

== ENCOUNTER → 2024-05-14 12:47 | Outpatient (BNVA) | payer MEDICARE, SELFPAY | PROVIDERS: PCP Family Medicine; Visit Provider Internal Medicine Rheumatology | DX: Z79.899 Other long term (current) drug therapy (principal); M77.11 Lateral epicondylitis, right elbow; M77.12 Lateral epicondylitis, left elbow; M06.041 Rheumatoid arthritis without rheumatoid factor, right hand; M06.042 Rheumatoid arthritis without rheumatoid factor, left hand | CPT/HCPCS: 99214 ==

== ENCOUNTER → 2024-09-11 14:45 | Outpatient (BNVA) | payer MEDICARE, SELFPAY | PROVIDERS: PCP Family Medicine; Visit Provider Specialist | DX: I63.512 Cerebral infarction due to unspecified occlusion or stenosis of left middle cerebral artery; G47.10 Hypersomnia, unspecified; I69.398 Other sequelae of cerebral infarction; R56.9 Unspecified convulsions | CPT/HCPCS: 99213 ==

== ENCOUNTER → 2024-09-22 13:36 | Outpatient (BNVA) | payer MEDICARE, SELFPAY | PROVIDERS: PCP Family Medicine; Visit Provider Family Medicine | DX: F41.9 Anxiety disorder, unspecified (principal); I10 Essential (primary) hypertension; E87.1 Hypo-osmolality and hyponatremia; Z79.899 Other long term (current) drug therapy | CPT/HCPCS: 80053; 80061; 85025 ==

== ENCOUNTER → 2024-11-12 12:52 | Outpatient (BNVA) | payer MEDICARE, SELFPAY | PROVIDERS: PCP Family Medicine; Visit Provider Internal Medicine Rheumatology | DX: Z79.899 Other long term (current) drug therapy (principal); M77.11 Lateral epicondylitis, right elbow; M77.12 Lateral epicondylitis, left elbow; M06.041 Rheumatoid arthritis without rheumatoid factor, right hand; M06.042 Rheumatoid arthritis without rheumatoid factor, left hand | CPT/HCPCS: 99214 ==

== ENCOUNTER 2025-05-07 12:07 | Outpatient (CLI) | payer MEDICARE, SELFPAY ==
[2025-05-07 12:43] LABS: Hematocrit 35.0 % (36-47); Hemoglobin 11.50 g/dL (11.27-16.99); Mean Corpuscular HGB Conc 32.9 g/dL (30-55); Mean Corpuscular Hemoglobin 29.3 pg (27-33); Mean Corpuscular Volume 89.1 fl (85-98); Nucleated Red Blood Cells % 0 %; Platelet Count 253 10^3/cmm (157-399); Red Blood Count 3.93 10^6/uL (3.85-5.65); White Blood Count 5.30 10^3/uL (3.29-11.43)
[2025-05-07 13:01] LABS: Alanine Aminotransferase 16 U/L (0-33); Albumin Level 4.1 g/dL (3.5-5.2); Alkaline Phosphatase 58 U/L (35-105); Aspartate Amino Transferase 17 U/L (0-32); Globulin 2.8 g/dL (1.3-4.6); Total Protein 6.9 g/dL (6.6-8.7)
== END 2025-05-07 12:08 | disposition home or self-care (01) ==
LOC: LAB 12:08
PROVIDERS: PCP Family Medicine; Visit Provider Internal Medicine Rheumatology
DX: Z79.899 Other long term (current) drug therapy (principal)
CPT/HCPCS: 36415; 80076; 82565; 85025; 85651; 86140

== ENCOUNTER → 2025-05-13 13:55 | Outpatient (BNVA) | payer MEDICARE, SELFPAY | PROVIDERS: PCP Family Medicine; Visit Provider Internal Medicine Rheumatology | DX: Z79.899 Other long term (current) drug therapy (principal); M77.11 Lateral epicondylitis, right elbow; M77.12 Lateral epicondylitis, left elbow; M06.041 Rheumatoid arthritis without rheumatoid factor, right hand; M06.042 Rheumatoid arthritis without rheumatoid factor, left hand | CPT/HCPCS: 99214 ==